=== PATIENT | female | born 1995 ===

== ENCOUNTER 2016-11-06 22:29 | Emergency (ER) | payer MEDICAID ==
[2016-11-06 22:29] VITALS: BMI 22.4
[2016-11-06 22:52] VITALS: RESP 16; O2SAT 99
[2016-11-06] MEDS ORDERED: Oxycodone/Acetaminophen 5/325 mg Tab PO STA (23:06)
--- NOTE | 2016-11-06 23:09 | ED PDOC ---
HPI: General Adult Time Seen by Provider: 11/06/16 23:07 Chief Complaint (Nursing): Back Pain Chief Complaint (Provider): BACK PAIN History Per: Patient (21 Y/O FEMALE H/O ENDOMETRIOSIS HERE WITH FALL ON HARD ICE WHILE SNOWBOARDING TODAY 12 HOURS AGO. PATIENT HAS H/O CHRONIC PAIN FOR ENDOMETRIOSIS AND TOOK TRAMADOL FOR PAIN CONTROL BUT STATES NOT MANAGED WITH IT. NOTES PAIN RADIATING DOWN BOTH LEGS BUT DENIES ANY URINARY OR RECTAL INCONTINENCE.) Past Medical History Reviewed: Historical Data, Nursing Documentation, Vital Signs Vital Signs: Last Vital Signs Temp 97.2 F L 11/06/16 22:49 Pulse 115 H 11/06/16 22:49 Resp 16 11/06/16 22:49 BP 92/63 L 11/06/16 22:49 Pulse Ox 99 11/06/16 23:12 - Medical History PMH: Denies: Chronic Kidney Disease - Surgical History Surgical History: Appendectomy - Family History Family History: States: Unknown Family Hx - Immunization History Hx Tetanus Toxoid Vaccination: No Hx Influenza Vaccination: No Hx Pneumococcal Vaccination: No - Home Medications Home Medications: Ambulatory Orders Medication Instructions Recorded Nitrofurantoin Macrocrystals 100 mg PO BID #14 cap 09/17/16 [Macrobid] Docusate [Colace] 1 tab PO BID #20 cap 11/06/16 Naproxen [Naprosyn Tab] 1 tab PO Q8 PRN #21 tab 11/06/16 oxyCODONE/Acetaminophen [Percocet 1 ea PO Q6 PRN #10 tab 11/06/16 5/325 mg Tab] - Allergies Allergies/Adverse Reactions: Allergies Allergy/AdvReac Type Severity Reaction Status Date / Time melon Allergy ANAPHYLAXIS Verified 08/09/16 19:09 milk Allergy SWELLING Verified 08/09/16 19:09 watermelon Allergy ANAPHYLAXIS Verified 08/09/16 19:04 cantelope Allergy ANAPHYLAXIS Uncoded 09/23/15 04:18 Review of Systems ROS Statement: Except As Marked, All Systems Reviewed And Found Negative Physical Exam - Reviewed Nursing Documentation Reviewed: Yes Vital Signs Reviewed: Yes - Physical Exam Appears: Positive for: Well, Non-toxic, No Acute Distress Head Exam: Positive for: ATRAUMATIC, NORMAL INSPECTION, NORMOCEPHALIC Skin: Positive for: Normal Color, Warm, DRY Eye Exam: Positive for: EOMI, Normal appearance, PERRL ENT: Positive for: Normal ENT Inspection Neck: Positive for: Normal, Painless ROM Cardiovascular/Chest: Positive for: Regular Rate, Rhythm Respiratory: Positive for: CNT, Normal Breath Sounds Gastrointestinal/Abdominal: Positive for: Normal Exam, Bowel Sounds, Soft Back: Positive for: Normal Inspection, Vertebral Tenderness (lower paralumbar tenderness. ) Extremity: Positive for: Normal ROM Neurologic/Psych: Positive for: Alert, Oriented - ECG O2 Sat by Pulse Oximetry: 99 - Progress ED Course And Treament: PERCOCET 5/325 MG X 1 DOSE XRY OF COCCYX/SACRUM: no obvious coccyceal fx noted results d/w patient. Naproxen 500 mg x 1 dose Disposition - Clinical Impression Clinical Impression: Coccygeal injury - Patient ED Disposition Is Patient to be Admitted: No - Disposition Disposition: Routine/Home Disposition Time: 23:48 Condition: FAIR Prescriptions: Docusate [Colace] 1 tab PO BID #20 cap Naproxen [Naprosyn Tab] 1 tab PO Q8 PRN #21 tab PRN Reason: Pain, Moderate (4-7) oxyCODONE/Acetaminophen [Percocet 5/325 mg Tab] 1 ea PO Q6 PRN #10 tab PRN Reason: Pain, Severe (8-10) Instructions: Coccyx Injury (ED) Forms: [facility] ED School/Work Excuse
[2016-11-06] MEDS ORDERED: Naproxen 500 MG TAB PO ONE (23:44)
[2016-11-06] MEDS ORDERED: Naproxen 500 MG TAB PO STA (23:46)
[2016-11-07 00:28] VITALS: BP 100/61; PULSE 67; TEMP 98.3
--- NOTE | 2016-11-07 13:32 | RAD ---
PROCEDURE: Radiographs of the Sacrum and Coccyx HISTORY: R/O COCCYCEAL FX COMPARISON: None available. TECHNIQUE: Frontal and lateral views of the sacrum and coccyx FINDINGS: BONES: Sacrum and coccyx are normal in appearance. No fracture or focal lesion. Bone alignment and mineralization are normal. The sacrococcygeal angulation is normal. SACROILIAC JOINTS: The joint spaces are preserved. No evidence of periarticular sclerosis or erosion. OTHER FINDINGS: None. IMPRESSION: No evidence of acute fracture.
== END 2016-11-07 00:25 | disposition home or self-care (01) ==
LOC: H.ER 22:29
DX: M54.5 Low back pain (principal); W19.XXXA Unspecified fall, initial encounter; Y92.89 Other specified places as the place of occurrence of the external cause

== ENCOUNTER 2016-11-28 16:39 | Observation (INO) | payer MEDICAID ==
[2016-11-28 16:39] VITALS: BMI 22.4
[2016-11-28 17:13] VITALS: BP 96/60; PULSE 80; RESP 18; TEMP 98.2; O2SAT 100
[2016-11-28 18:36] LABS: BASO % 0.3 % (0.0-2.0); EOS # 0.3 K/uL (0.0-0.7); EOS % 2.3 % (0.0-4.0); HEMATOCRIT 31.6 % (34.0-47.0); LYMPH # 2.2 K/uL (1.0-4.3); LYMPH % 19.4 % (20.0-40.0); MEAN CELL VOLUME 85.1 fl (81.0-99.0); MEAN CORPUSCULAR HEMOGLOBIN 28.5 pg (27.0-31.0); MEAN CORPUSCULAR HGB CONC 33.5 g/dL (33.0-37.0); MEAN PLATELET VOLUME 8.6 fl (7.2-11.7); MONO # 0.7 K/uL (0.0-0.8); NEUT # 8.3 K/uL (1.8-7.0); WHITE BLOOD COUNT 11.5 K/uL (4.8-10.8)
[2016-11-28 18:47] LABS: ALB/GLOB RATIO 1.3 (1.0-2.1); ALKALINE PHOSPHATASE 89 U/L (38-126); ALT/SGPT 18 U/L (9-52); AST/SGOT 29 U/L (14-36); BILIRUBIN,TOTAL 0.1 mg/dl (0.2-1.3); BLOOD UREA NITROGEN 13 mg/dl (7-17); CALCIUM 8.7 mg/dL (8.4-10.2); CARBON DIOXIDE 22 mmol/L (22-30); CHLORIDE 107 mmol/L (98-107); GFR AFRICAN-AMERICAN > 60; GLUCOSE,RANDOM 82 mg/dL (65-105); POTASSIUM 3.6 MMOL/L (3.6-5.0); SODIUM 142 mmol/l (132-148); TOTAL PROTEIN 7.3 G/DL (6.3-8.2)
--- NOTE | 2016-11-28 18:51 | ED PDOC ---
HPI: Female Pain Time Seen by Provider: 11/28/16 17:00 Chief Complaint (Nursing): Female Genitourinary Chief Complaint (Provider): Female Genitourinary History Per: Patient History/Exam Limitations: no limitations Onset/Duration Of Symptoms: Days Current Symptoms Are (Timing): Still Present Severity: Moderate Quality Of Discomfort: "Pain" Associated Symptoms: denies: Fever, Nausea, Vomiting, Diarrhea Alleviating Factors: None Additional Complaint(s): Patient is a 21 year old female with a history of endometriosis and recent miscarriage but been on OCPS for last two months, presents to ED for worsening pain for 5 days. Patient states ongoing pain for 2 months but in 5 days pain has worsened with abdominal swelling, unrelieved with Naproxen and Tramadol. Patient also reports vomiting at home, denies fever or diarrhea. [employer] ARCHITECT: Dr. Moralez Past Medical History Reviewed: Historical Data, Nursing Documentation, Vital Signs Vital Signs: Last Vital Signs Temp 98.2 F 11/28/16 17:01 Pulse 80 11/28/16 17:01 Resp 18 11/28/16 17:01 BP 96/60 L 11/28/16 17:01 Pulse Ox 100 11/28/16 17:01 - Medical History PMH: Denies: Chronic Kidney Disease Other PMH: Endometriosis - Surgical History Surgical History: Appendectomy - Family History Family History: States: Unknown Family Hx - Social History Current smoker - smoking cessation education provided: No Alcohol: None Drugs: Denies - Immunization History Hx Tetanus Toxoid Vaccination: No Hx Influenza Vaccination: No Hx Pneumococcal Vaccination: No - Home Medications Home Medications: Ambulatory Orders Medication Instructions Recorded Nitrofurantoin Macrocrystals 100 mg PO BID #14 cap 09/17/16 [Macrobid] Docusate [Colace] 1 tab PO BID #20 cap 11/06/16 Naproxen [Naprosyn Tab] 1 tab PO Q8 PRN #21 tab 11/06/16 oxyCODONE/Acetaminophen [Percocet 1 ea PO Q6 PRN #10 tab 11/06/16 5/325 mg Tab] - Allergies Allergies/Adverse Reactions: Allergies Allergy/AdvReac Type Severity Reaction Status Date / Time melon Allergy ANAPHYLAXIS Verified 08/09/16 19:09 milk Allergy SWELLING Verified 08/09/16 19:09 watermelon Allergy ANAPHYLAXIS Verified 08/09/16 19:04 cantelope Allergy ANAPHYLAXIS Uncoded 09/23/15 04:18 Review of Systems ROS Statement: Except As Marked, All Systems Reviewed And Found Negative Cardiovascular: Negative for: Chest Pain Respiratory: Negative for: Shortness of Breath Gastrointestinal: Positive for: Vomiting, Abdominal Pain. Negative for: Nausea Musculoskeletal: Negative for: Neck Pain, Back Pain Neurological: Negative for: Weakness, Numbness Physical Exam - Reviewed Nursing Documentation Reviewed: Yes Vital Signs Reviewed: Yes - Physical Exam Appears: Positive for: Non-toxic, No Acute Distress Skin: Positive for: Normal Color, Warm. Negative for: Pallor Eye Exam: Positive for: Normal appearance Neck: Positive for: Normal, Painless ROM Cardiovascular/Chest: Positive for: Regular Rate, Rhythm. Negative for: Murmur Respiratory: Positive for: Normal Breath Sounds. Negative for: Respiratory Distress Gastrointestinal/Abdominal: Positive for: Soft, Tenderness (mild suprapubic). Negative for: Distended Back: Positive for: Normal Inspection Extremity: Positive for: Normal ROM Neurologic/Psych: Positive for: Alert, Oriented - Laboratory Results Result Diagrams: 11/28/16 18:31 11/28/16 18:31 - ECG O2 Sat by Pulse Oximetry: 100 (RA) Pulse Ox Interpretation: Normal Medical Decision Making Medical Decision Making: Time: 1809 Initial impression: chronic endometrial pain vs other interuterine pathology Initial plan: -- Beta-HcG -- CBC -- CMP -- Toradol IM -- Urine culture -- ED obs -- U/A -- U/S Time: 2100 U/S report reviewed TRANSVAGINAL Exam Date: 11/28/16 This imaging exam was performed at [facility] EXAM: US Pelvis, Transvaginal CLINICAL HISTORY: 21 years old, female; Pain; Pelvic pain; Additional info: Pelvic pain TECHNIQUE: Real-time transvaginal pelvic ultrasound (complete) with image documentation. Transvaginal imaging was used for better evaluation of the endometrium and adnexa. EXAM DATE/TIME: 11/28/2016 6:11 PM COMPARISON: Prior pelvic CT of 09/23/2015 FINDINGS: Uterus: Within normal limits in appearance. Measures 8.1 x 3.1 x 4.6 cm. Endometrial stripe does not appear abnormally thickened, measuring 5 mm. Cervix appears closed. No fibroids seen. Right ovary: Within normal limits in appearance. Measures 2.1 x 1.1 x 1.9 cm. Flow seen in the right ovary on color and Doppler imaging, with no evidence of torsion. Left ovary: Abnormally enlarged, measuring 4.6 x 3.7 x 4.3 cm, secondary to a cystic lesion measuring 3.8 x 3.3 x 3.6 cm. This lesion appears simple in nature. Flow seen in the left ovarian parenchyma surrounding this lesion on color and Doppler imaging, with no definite evidence of torsion. Cul-de-sac: No free fluid. IMPRESSION: 3.8 cm simple cystic lesion in the left ovary. This cyst is almost certainly benign. No follow-up is necessary, unless otherwise clinically indicated. Patient on re-evaluation is feeling better, ovarian cyst noted on U/S discussed with patient that this can be followed outpatient with [employer] ARCHITECT. UA neg for infection. Patient agrees to follow up as instructed Scribe Attestation: Documented by Grace Manriquez acting as a scribe for Rudy Daniel MD MD Scribe Attestation: All medical record entries made by the Scribe were at my direction and personally dictated by me. I have reviewed the chart and agree that the record accurately reflects my personal performance of the history, physical exam, medical decision making, and the department course for this patient. I have also personally directed, reviewed, and agree with the discharge instructions and disposition. Disposition - Clinical Impression Clinical Impression: Genitourinary Pain, Endometriosis - Patient ED Disposition Is Patient to be Admitted: No Counseled Patient/Family Regarding: Studies Performed, Diagnosis, Need For Followup - Disposition Disposition: Routine/Home Disposition Time: 21:00 Condition: IMPROVED
[2016-11-28 18:57] LABS: RBC URINE 2 /hpf (0-3); URINE BACTERIA RARE (<OCC); URINE BILIRUBIN NEGATIVE (NEGATIVE); URINE BLOOD NEGATIVE (NEGATIVE); URINE COLOR YELLOW (YELLOW); URINE GLUCOSE (UA) NEG (Normal); URINE KETONE NEGATIVE (NEGATIVE); URINE LEUKOCYTE ESTERASE NEG Leu/uL (Negative); URINE PROTEIN 30 mg/dL (NEGATIVE); URINE UROBILINOGEN 0.2-1.0 mg/dL (0.2-1.0); WBC URINE 3 /hpf (0-5)
--- NOTE | 2016-11-28 20:41 | US ---
EXAM: US Pelvis, Transvaginal CLINICAL HISTORY: 21 years old, female; Pain; Pelvic pain; Additional info: Pelvic pain TECHNIQUE: Real-time transvaginal pelvic ultrasound (complete) with image documentation. Transvaginal imaging was used for better evaluation of the endometrium and adnexa. EXAM DATE/TIME: 11/28/2016 6:11 PM COMPARISON: Prior pelvic CT of 09/23/2015 FINDINGS: Uterus: Within normal limits in appearance. Measures 8.1 x 3.1 x 4.6 cm. Endometrial stripe does not appear abnormally thickened, measuring 5 mm. Cervix appears closed. No fibroids seen. Right ovary: Within normal limits in appearance. Measures 2.1 x 1.1 x 1.9 cm. Flow seen in the right ovary on color and Doppler imaging, with no evidence of torsion. Left ovary: Abnormally enlarged, measuring 4.6 x 3.7 x 4.3 cm, secondary to a cystic lesion measuring 3.8 x 3.3 x 3.6 cm. This lesion appears simple in nature. Flow seen in the left ovarian parenchyma surrounding this lesion on color and Doppler imaging, with no definite evidence of torsion. Cul-de-sac: No free fluid. IMPRESSION: 3.8 cm simple cystic lesion in the left ovary. This cyst is almost certainly benign. No follow-up is necessary, unless otherwise clinically indicated. Otherwise negative exam. See above for remaining findings.
== END 2016-11-28 21:01 | disposition home or self-care (01) ==
LOC: H.ER 16:39 → H.EROBSV 18:15
PROVIDERS: ADMIT Emergency Medicine; ATTEND Emergency Medicine
DX: R10.2 Pelvic and perineal pain (principal); N80.9 Endometriosis, unspecified; N83.209 Unspecified ovarian cyst, unspecified side

== ENCOUNTER 2017-01-07 16:52 | Emergency (ER) | payer MEDICAID ==
[2017-01-07 16:52] VITALS: BMI 22.4
[2017-01-07 16:59] VITALS: BP 108/69; PULSE 75; RESP 16; TEMP 98; O2SAT 100
--- NOTE | 2017-01-07 17:42 | ED PDOC ---
HPI: Female Pain Time Seen by Provider: 01/07/17 17:05 Chief Complaint (Nursing): Female Genitourinary Chief Complaint (Provider): Female Genitourinary History Per: Patient History/Exam Limitations: no limitations Onset/Duration Of Symptoms: Days (x13 days but has had on going since 17 y/o) Current Symptoms Are (Timing): Still Present Additional Complaint(s): 21 y/o female with a past medical history of endometriosis (Dx: 17 y/o) presents to the emergency department with a complaint of diffuse pelvic pain described as cramping that radiates to the legs bilaterally, mild nausea, lower back pain, and vaginal bleeding ongoing x13 days. Patient states her periods usually only last about 3 days but decided to visit the ER because symptoms had worsened over the last few days. Reports taking Tramadol without relief of pain. Denies vomiting, diarrhea, abdominal pain, urinary symptoms, chest pain, or shortness of breath. No numbness, tingles. No weakness. No incontinence or constipation. PMD: Dr. Owen Arroyo MD OBGYN: Dr Alfonso REGALADO Past Medical History Reviewed: Historical Data, Nursing Documentation, Vital Signs Vital Signs: Last Vital Signs Temp 98.0 F 01/07/17 16:53 Pulse 75 01/07/17 16:53 Resp 16 01/07/17 16:53 BP 108/69 01/07/17 16:53 Pulse Ox 100 01/07/17 16:53 - Medical History PMH: Denies: Chronic Kidney Disease Other PMH: Endometriosis (Dx at 17 y/o) - Surgical History Surgical History: Appendectomy - Family History Family History: States: Unknown Family Hx - Immunization History Hx Tetanus Toxoid Vaccination: No Hx Influenza Vaccination: No Hx Pneumococcal Vaccination: No - Home Medications Home Medications: Ambulatory Orders Medication Instructions Recorded Nitrofurantoin Macrocrystals 100 mg PO BID #14 cap 09/17/16 [Macrobid] Docusate [Colace] 1 tab PO BID #20 cap 11/06/16 Naproxen [Naprosyn Tab] 1 tab PO Q8 PRN #21 tab 11/06/16 oxyCODONE/Acetaminophen [Percocet 1 ea PO Q6 PRN #10 tab 11/06/16 5/325 mg Tab] - Allergies Allergies/Adverse Reactions: Allergies Allergy/AdvReac Type Severity Reaction Status Date / Time melon Allergy ANAPHYLAXIS Verified 08/09/16 19:09 milk Allergy SWELLING Verified 08/09/16 19:09 watermelon Allergy ANAPHYLAXIS Verified 08/09/16 19:04 cantelope Allergy ANAPHYLAXIS Uncoded 09/23/15 04:18 Review of Systems ROS Statement: Except As Marked, All Systems Reviewed And Found Negative Cardiovascular: Negative for: Chest Pain Respiratory: Negative for: Shortness of Breath Gastrointestinal: Positive for: Nausea (Mild). Negative for: Vomiting, Abdominal Pain, Diarrhea Genitourinary Female: Positive for: Vaginal Bleeding (x13 days), Pelvic Pain ( Severe described as cramping). Negative for: Dysuria, Frequency, Incontinence, Hematuria Musculoskeletal: Positive for: Back Pain (Diffuse lower), Leg Pain (b/l) Physical Exam - Reviewed Nursing Documentation Reviewed: Yes Vital Signs Reviewed: Yes - Physical Exam Appears: Positive for: Non-toxic, In Acute Distress Head Exam: Positive for: ATRAUMATIC, NORMOCEPHALIC Skin: Positive for: Normal Color, Warm, Dry Eye Exam: Positive for: Normal appearance. Negative for: Conjunctival injection Neck: Positive for: Normal, Painless ROM, Supple Cardiovascular/Chest: Positive for: Regular Rate, Rhythm. Negative for: Murmur Respiratory: Positive for: Normal Breath Sounds. Negative for: Accessory Muscle Use, Respiratory Distress Gastrointestinal/Abdominal: Positive for: Normal Exam, Soft. Negative for: Tenderness Pelvic Exam: Positive for: Other (Lower pelvic tenderness mild) Back: Positive for: Other (Mild lower back pain). Negative for: Normal Inspection, L CVA Tenderness, R CVA Tenderness Extremity: Positive for: Normal ROM. Negative for: Pedal Edema Neurologic/Psych: Positive for: Alert, Oriented - Laboratory Results Result Diagrams: 01/07/17 17:32 01/07/17 17:32 Interpretation Of Abn Labs: no acute - ECG O2 Sat by Pulse Oximetry: 100 (RA) Pulse Ox Interpretation: Normal - Progress ED Course And Treament: 1917: Stable. Dr. Mas to fu on US and dispo. Medical Decision Making Medical Decision Making: Time: 17:05 Initial impression: Initial plan: --Basic Metabolic Panel --Urine Dip --ED Urine (POC) --CBC w/ differential --Partial Thromboplastin Time (COAG) --Prothrombin Time (COAG) --Morphine 4 mg IV --Sodium Chloride 1,000 ml IV 1,000 mls/hr --Pelvis/Transvag US --Revaluation Scribe Attestation: Documented by Maria Dolores íRos, acting as a scribe for Francis Dobbins MD. Provider Scribe Attestation: All medical record entries made by the Scribe were at my direction and personally dictated by me. I have reviewed the chart and agree that the record accurately reflects my personal performance of the history, physical exam, medical decision making, and the department course for this patient. I have also personally directed, reviewed, and agree with the discharge instructions and disposition. Disposition - Clinical Impression Clinical Impression: Vaginal bleeding - Patient ED Disposition Is Patient to be Admitted: Transfer of Care - Disposition Disposition: Transfer of Care Disposition Time: 19:18 Condition: STABLE Patient Signed Over To: Tanner Mas
[2017-01-07 17:49] LABS: BASO % 0.5 % (0.0-2.0); EOS # 0.5 K/uL (0.0-0.7); EOS % 6.8 % (0.0-4.0); HEMATOCRIT 31.9 % (34.0-47.0); LYMPH # 2.5 K/uL (1.0-4.3); LYMPH % 34.5 % (20.0-40.0); MEAN CELL VOLUME 81.4 fl (81.0-99.0); MEAN CORPUSCULAR HEMOGLOBIN 26.6 pg (27.0-31.0); MEAN CORPUSCULAR HGB CONC 32.7 g/dL (33.0-37.0); MEAN PLATELET VOLUME 7.9 fl (7.2-11.7); MONO # 0.5 K/uL (0.0-0.8); MONO % 7.1 % (0.0-10.0); NEUT # 3.7 K/uL (1.8-7.0); NEUT % 51.1 % (50.0-75.0); NRBC % 0.1 % (0.0-0.0); RED CELL DISTRIBUTION WIDTH 13.2 % (11.5-14.5); WHITE BLOOD COUNT 7.2 K/uL (4.8-10.8)
[2017-01-07] MEDS: Sodium Chloride 0.9% 1,000 ML IV STA (18:03)
[2017-01-07 18:04] LABS: BLOOD UREA NITROGEN 13 mg/dl (7-17); CALCIUM 8.9 mg/dL (8.4-10.2); CARBON DIOXIDE 24 mmol/L (22-30); CHLORIDE 107 mmol/L (98-107); GFR AFRICAN-AMERICAN > 60; GLUCOSE,RANDOM 79 mg/dL (65-105); POTASSIUM 3.9 MMOL/L (3.6-5.0); SODIUM 139 mmol/l (132-148)
--- NOTE | 2017-01-07 20:28 | ED PDOC ---
- Laboratory Results Result Diagrams: 01/07/17 17:32 01/07/17 17:32 - ECG O2 Sat by Pulse Oximetry: 100 (RA) Pulse Ox Interpretation: Normal Medical Decision Making Medical Decision Making: Time: 19:00 Initial plan: --Patient was transferred from Dr. Dobbins. --Patient is pending Transvag US, reassessment, and disposition. Time: 20:56 --TransVag US FINDINGS: Uterus/cervix: Uterus measures 6.9 x 2.9 x 3.4 cm in size. No myometrial mass. Endometrium: 0.4 cm in thickness. Right ovary: 2.0 x 1.4 x 1.5 cm in size. No mass. Small follicles. Normal flow. Left ovary: 2.0 x 1.0 x 1.9 cm in size. No mass. Small follicles. Normal flow. Free fluid: No significant free fluid. Bladder: Unremarkable as visualized. IMPRESSION: 1. No acute findings. 2. Non-acute findings are described above. EXAM: US Pelvis, Transvaginal CLINICAL HISTORY: 21 years old, female; Pain; Pelvic pain; Additional info: Pelvic pain and vaginal bleeding TECHNIQUE: Real-time transvaginal pelvic ultrasound (complete) with image documentation. Transvaginal imaging was used for better evaluation of the endometrium and adnexa. COMPARISON: CT - ABD PELVIS PO IV CONTRAST 09/23/2015 12:20:24 PM FINDINGS: Uterus/cervix: Uterus measures 6.9 x 2.9 x 3.4 cm in size. No myometrial mass. Endometrium: 0.4 cm in thickness. Right ovary: 2.0 x 1.4 x 1.5 cm in size. No mass. Small follicles. Normal flow. Left ovary: 2.0 x 1.0 x 1.9 cm in size. No mass. Small follicles. Normal flow. Free fluid: No significant free fluid. Bladder: Empty bladder which cannot be evaluated with this probe. IMPRESSION: 1. No acute findings. 2. Non-acute findings are described above. Time: 21:52 --Morphine 4 mg IVP Time: 22:30 --Patient was reevaluated and reported mild improvement in symptoms. --Reviewed [facility] which shows patient does not have a hx of opiate dependency. Possible overdose with narcotic and opiate dependency was discussed with patient. --Reports she has a follow up appointment on 01/09/[address] Hamilton. Upon provider reevaluation patient is feeling better, is medically stable, and requires no further treatment in the ED at this time. Patient will be discharged home with Rx for Colace 100 mg and Percocet 5/325 mg. Counseling was provided and all questions were answered regarding diagnosis and need for follow up with referred clinic. There is agreement to discharge plan. Return if symptoms persist or worsen. Clinical Impression: Vaginal bleeding and endometriosis Scribe Attestation: Documented by Maria Dolores Ríos, acting as a scribe for Tanner Mas MD. Provider Scribe Attestation: All medical record entries made by the Scribe were at my direction and personally dictated by me. I have reviewed the chart and agree that the record accurately reflects my personal performance of the history, physical exam, medical decision making, and the department course for this patient. I have also personally directed, reviewed, and agree with the discharge instructions and disposition. Disposition - Clinical Impression Clinical Impression: Vaginal bleeding, Endometriosis - POA Present On Arrival: None - Disposition [facility] Disposition: Routine/Home Disposition Time: 22:30 Condition: STABLE Prescriptions: Docusate [Colace] 100 mg PO BID PRN #20 cap PRN Reason: Constipation oxyCODONE/Acetaminophen [Percocet 5/325 mg Tab] 1 ea PO Q6 PRN #12 tab PRN Reason: abdominal/pelvic pain Instructions: Endometriosis (ED)
--- NOTE | 2017-01-07 20:57 | US ---
EXAM: US Pelvis Complete, Transabdominal CLINICAL HISTORY: 21 years old, female; Pain; Pelvic pain; Additional info: Pelvic pain and vaginal bleeding TECHNIQUE: Real-time transabdominal pelvic ultrasound (complete) with image documentation. COMPARISON: CT - ABD PELVIS PO IV CONTRAST 09/23/2015 12:20:24 PM FINDINGS: Uterus/cervix: Uterus measures 6.9 x 2.9 x 3.4 cm in size. No myometrial mass. Endometrium: 0.4 cm in thickness. Right ovary: 2.0 x 1.4 x 1.5 cm in size. No mass. Small follicles. Normal flow. Left ovary: 2.0 x 1.0 x 1.9 cm in size. No mass. Small follicles. Normal flow. Free fluid: No significant free fluid. Bladder: Unremarkable as visualized. IMPRESSION: 1.No acute findings. 2.Non-acute findings are described above. EXAM: US Pelvis, Transvaginal CLINICAL HISTORY: 21 years old, female; Pain; Pelvic pain; Additional info: Pelvic pain and vaginal bleeding TECHNIQUE: Real-time transvaginal pelvic ultrasound (complete) with image documentation. Transvaginal imaging was used for better evaluation of the endometrium and adnexa. COMPARISON: CT - ABD PELVIS PO IV CONTRAST 09/23/2015 12:20:24 PM FINDINGS: Uterus/cervix: Uterus measures 6.9 x 2.9 x 3.4 cm in size. No myometrial mass. Endometrium: 0.4 cm in thickness. Right ovary: 2.0 x 1.4 x 1.5 cm in size. No mass. Small follicles. Normal flow. Left ovary: 2.0 x 1.0 x 1.9 cm in size. No mass. Small follicles. Normal flow. Free fluid: No significant free fluid. Bladder: Empty bladder which cannot be evaluated with this probe.
== END 2017-01-07 22:57 | disposition home or self-care (01) ==
LOC: H.ER 16:52
DX: N93.9 Abnormal uterine and vaginal bleeding, unspecified (principal); R10.2 Pelvic and perineal pain

== ENCOUNTER 2017-03-10 08:39 | Emergency (ER) | payer MEDICAID ==
[2017-03-10 08:39] VITALS: BMI 22.4
[2017-03-10 08:46] VITALS: RESP 18
[2017-03-10] MEDS ORDERED: Sodium Chloride 0.9% 1,000 ML IV STA (09:17)
[2017-03-10 09:28] LABS: BASO % 0.3 % (0.0-2.0); EOS % 0.8 % (0.0-4.0); HEMOGLOBIN 11.2 g/dL (12.0-16.0); LYMPH # 0.9 K/uL (1.0-4.3); LYMPH % 16.9 % (20.0-40.0); MEAN CELL VOLUME 81.2 fl (81.0-99.0); MEAN CORPUSCULAR HEMOGLOBIN 26.7 pg (27.0-31.0); MEAN CORPUSCULAR HGB CONC 32.9 g/dL (33.0-37.0); MEAN PLATELET VOLUME 7.8 fl (7.2-11.7); MONO # 0.3 K/uL (0.0-0.8); MONO % 6.7 % (0.0-10.0); NEUT # 3.9 K/uL (1.8-7.0); NEUT % 75.3 % (50.0-75.0); RBC 4.2 Mil/uL (3.80-5.20); RED CELL DISTRIBUTION WIDTH 15.8 % (11.5-14.5); WHITE BLOOD COUNT 5.2 K/uL (4.8-10.8)
[2017-03-10 09:41] LABS: ALB/GLOB RATIO 1.2 (1.0-2.1); ALBUMIN 4.1 g/dL (3.5-5.0); ALT/SGPT 24 U/L (9-52); AST/SGOT 24 U/L (14-36); BLOOD UREA NITROGEN 10 mg/dl (7-17); CALCIUM 8.5 mg/dL (8.4-10.2); GFR AFRICAN-AMERICAN > 60; GFR NON-AFRICAN AMERICAN > 60; LIPASE 45 U/L (23-300)
--- NOTE | 2017-03-10 09:42 | ED PDOC ---
HPI: Abdomen Time Seen by Provider: 03/10/17 09:10 Chief Complaint (Nursing): Abdominal Pain Chief Complaint (Provider): upper abdominal pain, nausea History Per: Patient History/Exam Limitations: no limitations Onset/Duration Of Symptoms: Days (1) Current Symptoms Are (Timing): Still Present Context: Food Severity: Moderate Location Of Pain/Discomfort: RUQ, Epigastric, LUQ Quality Of Discomfort: Sharp, Cramping Associated Symptoms: Nausea, Loss Of Appetite. denies: Vomiting, Diarrhea Exacerbating Factors: None Alleviating Factors: None Last Bowel Movement: Today Additional Complaint(s): 21yo female c/o upper abdominal pain radiating to the back, nausea and loss of appetite since yesterday. Also c/o mild headache, body aches and malaise. Denies bloody stools or fever. States she thinks she was told last year she had gallstones, but never followed up w surgeon. LMP Crystal 2. (spontaneous ). Past Medical History Reviewed: Historical Data, Nursing Documentation, Vital Signs Vital Signs: Last Vital Signs Temp 97 F L 03/10/17 17:41 Pulse 82 03/10/17 17:41 Resp 18 03/10/17 17:41 BP 110/62 03/10/17 17:41 Pulse Ox 99 03/10/17 17:41 - Medical History PMH: Denies: Chronic Kidney Disease Other PMH: endometriosis (this pain feels different today) - Surgical History Surgical History: Appendectomy - Family History Family History: States: Unknown Family Hx - Social History Current smoker - smoking cessation education provided: No - Immunization History Hx Tetanus Toxoid Vaccination: No Hx Influenza Vaccination: No Hx Pneumococcal Vaccination: No - Home Medications Home Medications: Ambulatory Orders Medication Instructions Recorded Nitrofurantoin Macrocrystals 100 mg PO BID #14 cap 09/17/16 [Macrobid] Docusate [Colace] 1 tab PO BID #20 cap 11/06/16 Naproxen [Naprosyn Tab] 1 tab PO Q8 PRN #21 tab 11/06/16 oxyCODONE/Acetaminophen [Percocet 1 ea PO Q6 PRN #10 tab 11/06/16 5/325 mg Tab] Docusate [Colace] 100 mg PO BID PRN #20 cap 01/07/17 oxyCODONE/Acetaminophen [Percocet 1 ea PO Q6 PRN #12 tab 01/07/17 5/325 mg Tab] Ibuprofen [Motrin] 600 mg PO Q6 #20 tab 02/11/17 traMADol [Ultram] 50 mg PO TID #10 tab 02/11/17 Ciprofloxacin [Cipro] 500 mg PO BID #14 tab 03/10/17 Ondansetron [Zofran] 4 mg PO Q6H PRN #10 tab 03/10/17 metroNIDAZOLE [Flagyl] 500 mg PO TID #21 tab 03/10/17 traMADol [Ultram] 50 mg PO TID PRN #12 tab 03/10/17 - Allergies Allergies/Adverse Reactions: Allergies Allergy/AdvReac Type Severity Reaction Status Date / Time melon Allergy ANAPHYLAXIS Verified 02/10/17 20:03 milk Allergy SWELLING Verified 02/10/17 20:03 watermelon Allergy ANAPHYLAXIS Verified 02/10/17 20:03 cantelope Allergy ANAPHYLAXIS Uncoded 02/10/17 20:03 Review of Systems ROS Statement: Except As Marked, All Systems Reviewed And Found Negative Constitutional: Positive for: Malaise. Negative for: Fever, Chills ENT: Negative for: Nose Discharge, Throat Pain, Throat Swelling Cardiovascular: Negative for: Palpitations, Orthopnea Respiratory: Negative for: Cough, Shortness of Breath Gastrointestinal: Positive for: Nausea, Abdominal Pain. Negative for: Vomiting , Diarrhea Genitourinary Female: Negative for: Dysuria, Hematuria, Vaginal Discharge, Vaginal Bleeding Musculoskeletal: Negative for: Neck Pain, Shoulder Pain Skin: Negative for: Rash, Lesions, Jaundice Neurological: Positive for: Headache. Negative for: Weakness, Numbness, Dizziness Psych: Negative for: Anxiety, Depression Physical Exam - Reviewed Nursing Documentation Reviewed: Yes Vital Signs Reviewed: Yes - Physical Exam Appears: Positive for: Well, Non-toxic, No Acute Distress Head Exam: Positive for: ATRAUMATIC, NORMAL INSPECTION, NORMOCEPHALIC Skin: Positive for: Normal Color, Warm, DRY Eye Exam: Positive for: EOMI, Normal appearance, PERRL ENT: Positive for: Normal ENT Inspection Neck: Positive for: Normal, Painless ROM Cardiovascular/Chest: Positive for: Regular Rate, Rhythm Respiratory: Positive for: CNT, Normal Breath Sounds Gastrointestinal/Abdominal: Positive for: Bowel Sounds, Soft, Tenderness (mild R >L). Negative for: Guarding, Rebound Back: Positive for: Normal Inspection Extremity: Positive for: Normal ROM Neurologic/Psych: Positive for: Alert, feather baler II-XII, Oriented. Negative for: Motor/Sensory Deficits - Laboratory Results Result Diagrams: 03/10/17 09:24 03/10/17 09:24 - ECG O2 Sat by Pulse Oximetry: 100 Pulse Ox Interpretation: Normal Medical Decision Making Medical Decision Making: labs reviewed, mild anemia, WBC normal US abd unremarkable CT thus performed given persistent symptoms. Report reviewed revealing colitis. Rx Abx, followup GI. Disposition - Clinical Impression Clinical Impression: Colitis, Abdominal pain - Patient ED Disposition Is Patient to be Admitted: No Counseled Patient/Family Regarding: Studies Performed, Diagnosis, Need For Followup, Rx Given - Disposition Referrals: Moise Levine MD [Staff Provider] - Disposition: Routine/Home Disposition Time: 16:00 Condition: STABLE Additional Instructions: See GI specialist for possible colonoscopy to rule-out serious conditions like inflammatory bowel disease, cancer or other colonic pathologies. Return to ER for any new or worsening symptoms, fever, blood in stool, worsening pain, or any concern. Recommend bland diet for 5 days. Take medications as directed, do not exercise or exert yourself while taking cipro (documented risk of tendon injury for those who exercise while taking this medication) Prescriptions: Ciprofloxacin [Cipro] 500 mg PO BID #14 tab metroNIDAZOLE [Flagyl] 500 mg PO TID #21 tab Ondansetron [Zofran] 4 mg PO Q6H PRN #10 tab PRN Reason: Nausea/Vomiting traMADol [Ultram] 50 mg PO TID PRN #12 tab PRN Reason: Pain, Moderate (4-7) Instructions: Abdominal Pain (ED), Colitis (ED) Forms: [employer] ([place])
[2017-03-10 09:47] LABS: SQUAMOUS EPITHIAL 12 /hpf (0-5); URINE BACTERIA RARE (<OCC); URINE BILIRUBIN NEGATIVE (NEGATIVE); URINE BLOOD SMALL (NEGATIVE); URINE CLARITY CLOUDY (Clear); URINE COLOR YELLOW (YELLOW); URINE GLUCOSE (UA) NEG (Normal); URINE LEUKOCYTE ESTERASE NEG Leu/uL (Negative); URINE NITRATE NEGATIVE (NEGATIVE); URINE PROTEIN 30 mg/dL (NEGATIVE)
--- NOTE | 2017-03-10 11:26 | US ---
HISTORY: RUQ pain COMPARISON: None. TECHNIQUE: Sonographic evaluation of the abdomen. FINDINGS: LIVER: Measures cm. Normal echogenicity of the liver parenchyma. No mass. No intrahepatic bile duct dilatation. GALLBLADDER: Unremarkable. No gallstones. COMMON BILE DUCT: Measures mm. No stones. No dilatation. PANCREAS: Unremarkable as visualized. No mass. No ductal dilatation. RIGHT KIDNEY: Measures cm. Normal echogenicity. No calculus, mass, or hydronephrosis. LEFT KIDNEY: Measures cm. Normal echogenicity. No calculus, mass, or hydronephrosis. SPLEEN: Normal in size and contour. No mass. AORTA: No aneurysmal dilatation. IVC: Unremarkable. OTHER FINDINGS: None. IMPRESSION: Unremarkable abdominal sonogram.
[2017-03-10] MEDS ORDERED: Iohexol 300 100 ML IJ ONE (13:34)
[2017-03-10] MEDS ORDERED: Sodium Chloride 0.9% 50 ML IV ONE (13:34)
--- NOTE | 2017-03-10 15:29 | CT ---
PROCEDURE: CT Abdomen and Pelvis with contrast HISTORY: upper abd pain COMPARISON: None. TECHNIQUE: Contrast dose: 95 mL Omnipaque 300 Radiation dose: Total exam DLP = 42.58 mGy-cm. This CT exam was performed using one or more of the following dose reduction techniques: Automated exposure control, adjustment of the mA and/or kV according to patient size, and/or use of iterative reconstruction technique. FINDINGS: LOWER THORAX: Unremarkable. LIVER: Unremarkable. No gross lesion or ductal dilatation. GALLBLADDER AND BILE DUCTS: Unremarkable. PANCREAS: Unremarkable. No gross lesion or ductal dilatation. SPLEEN: Unremarkable. ADRENALS: Unremarkable. No mass. KIDNEYS AND URETERS: Unremarkable. No hydronephrosis. No solid mass. VASCULATURE: Unremarkable. No aortic aneurysm. BOWEL: There are scattered colonic diverticulae. There is circumferential mural thickening of the ascending and transverse colon. This is suspicious for a colitis, nonspecific. There is streaky inflammatory change adjacent to the ascending colon. There is no bowel obstruction. There are no other abnormal bowel loops identified. APPENDIX: Not identified. Surgical clips are seen in the right lower quadrant raising question of prior appendectomy. PERITONEUM: Trace fluid in the cul-de-sac. LYMPH NODES: Unremarkable. No enlarged lymph nodes. BLADDER: Unremarkable. REPRODUCTIVE: Normal uterus BONES: No acute fracture. OTHER FINDINGS: None. IMPRESSION: Findings concerning for nonspecific colitis involving the ascending and transverse colon. Pericolonic inflammatory change adjacent to the ascending colon. Scattered colonic diverticulae. No other significant abnormality. There is a [address] or [address] the way that [facility]da at [place] 0 my plain films 0 8 will given rotated cystogram from well but not have the opportunity plus diagnostic mammo So blunted and the right colon image 91 2.5 and 1 right wall and omental infarct or outflow or
[2017-03-10] MEDS ORDERED: Oxycodone/Acetaminophen 5/325 mg Tab PO STA (15:46)
[2017-03-10] MEDS ORDERED: Oxycodone/Acetaminophen 5/325 mg Tab ONE (15:58)
[2017-03-10 17:42] VITALS: BP 110/62; PULSE 82; TEMP 97
[2017-03-14 12:33] VITALS: O2SAT 100
== END 2017-03-10 17:42 | disposition home or self-care (01) ==
LOC: H.ER 08:39
DX: K52.9 Noninfective gastroenteritis and colitis, unspecified (principal); R10.9 Unspecified abdominal pain

== ENCOUNTER 2017-03-14 14:24 | Inpatient (IN) | payer MEDICAID ==
[2017-03-14 14:24] VITALS: BMI 22.4
[2017-03-14] MEDS ORDERED: Sodium Chloride 0.9% 1,000 ML IV STA (15:24)
--- NOTE | 2017-03-14 15:33 | ED PDOC ---
HPI: Abdomen Time Seen by Provider: 03/14/17 15:11 Chief Complaint (Nursing): Abdominal Pain History Per: Patient (presented for evaluation of persistent abdominal pain. She was diagnosed with colitis [address] scan in this ER. She was discharged with cipro, flagyl, zofran and tramadol. She returned today because she developed vomiting but still has not had any diarrhea. She points to pain in the RUQ area.) History/Exam Limitations: no limitations Onset/Duration Of Symptoms: Waxing/Waning Past Medical History Reviewed: Historical Data, Nursing Documentation, Vital Signs Vital Signs: Last Vital Signs Temp 98 F 03/14/17 17:36 Pulse 56 L 03/14/17 18:06 Resp 18 03/14/17 18:06 BP 109/65 03/14/17 18:06 Pulse Ox 100 03/14/17 18:06 - Medical History PMH: Denies: Chronic Kidney Disease Other PMH: endometriosis - Surgical History Surgical History: Appendectomy - Family History Family History: States: Unknown Family Hx - Living Arrangements Living Arrangements: With Family - Immunization History Hx Tetanus Toxoid Vaccination: No Hx Influenza Vaccination: No Hx Pneumococcal Vaccination: No - Home Medications Home Medications: Ambulatory Orders Medication Instructions Recorded Nitrofurantoin Macrocrystals 100 mg PO BID #14 cap 09/17/16 [Macrobid] Docusate [Colace] 1 tab PO BID #20 cap 11/06/16 Naproxen [Naprosyn Tab] 1 tab PO Q8 PRN #21 tab 11/06/16 oxyCODONE/Acetaminophen [Percocet 1 ea PO Q6 PRN #10 tab 11/06/16 5/325 mg Tab] Docusate [Colace] 100 mg PO BID PRN #20 cap 01/07/17 oxyCODONE/Acetaminophen [Percocet 1 ea PO Q6 PRN #12 tab 01/07/17 5/325 mg Tab] Ibuprofen [Motrin] 600 mg PO Q6 #20 tab 02/11/17 traMADol [Ultram] 50 mg PO TID #10 tab 02/11/17 Ciprofloxacin [Cipro] 500 mg PO BID #14 tab 03/10/17 Ondansetron [Zofran] 4 mg PO Q6H PRN #10 tab 03/10/17 metroNIDAZOLE [Flagyl] 500 mg PO TID #21 tab 03/10/17 traMADol [Ultram] 50 mg PO TID PRN #12 tab 03/10/17 - Allergies Allergies/Adverse Reactions: Allergies Allergy/AdvReac Type Severity Reaction Status Date / Time melon Allergy ANAPHYLAXIS Verified 02/10/17 20:03 milk Allergy SWELLING Verified 02/10/17 20:03 watermelon Allergy ANAPHYLAXIS Verified 02/10/17 20:03 cantelope Allergy ANAPHYLAXIS Uncoded 02/10/17 20:03 Review of Systems ROS Statement: Except As Marked, All Systems Reviewed And Found Negative Constitutional: Negative for: Fever, Chills Gastrointestinal: Positive for: Nausea, Vomiting, Abdominal Pain Genitourinary Female: Negative for: Dysuria, Frequency Physical Exam - Reviewed Nursing Documentation Reviewed: Yes Vital Signs Reviewed: Yes - Physical Exam Appears: Positive for: Well, Non-toxic, No Acute Distress, Uncomfortable Head Exam: Positive for: ATRAUMATIC, NORMAL INSPECTION, NORMOCEPHALIC Skin: Positive for: Normal Color, Warm, DRY Eye Exam: Positive for: Normal appearance, EOMI ENT: Positive for: Normal ENT Inspection Neck: Positive for: Normal, Painless ROM Cardiovascular/Chest: Positive for: Regular Rate, Rhythm Respiratory: Positive for: CNT, Normal Breath Sounds Gastrointestinal/Abdominal: Positive for: Bowel Sounds (increased), Tenderness ( RUQ and LLQ), Distended Back: Positive for: Normal Inspection Extremity: Positive for: Normal ROM Neurologic/Psych: Positive for: Alert, Oriented - Laboratory Results Result Diagrams: 03/14/17 16:23 03/14/17 15:40 - ECG O2 Sat by Pulse Oximetry: 99 Medical Decision Making Medical Decision Making: reviewed chart from 4 days ago. labs normal. CT reviewed. Imp: abd pain: repeat labs, US and x-rays 6.15p patient not feeling better. still has pain, nausea, and loss of appetite. Case d/w DR. Mccarthy for medical service admission. Disposition - Clinical Impression Clinical Impression: Abdominal pain, Colitis - Patient ED Disposition Is Patient to be Admitted: Yes Doctor Will See Patient In The: Hospital - Disposition Disposition: Transfer of Care Disposition Time: 18:00 Condition: GUARDED Forms: [employer] (Citizen Of [place]) - Pt Status Changed To: Hospital Disposition Of: Observation - POA Present On Arrival: None
[2017-03-14 16:16] LABS: BASO % 0.9 % (0.0-2.0); EOS # 0.1 K/uL (0.0-0.7); EOS % 2.6 % (0.0-4.0); HEMATOCRIT 32.5 % (34.0-47.0); LYMPH % 42.7 % (20.0-40.0); MEAN CELL VOLUME 80.4 fl (81.0-99.0); MEAN CORPUSCULAR HEMOGLOBIN 26.2 pg (27.0-31.0); MEAN CORPUSCULAR HGB CONC 32.6 g/dL (33.0-37.0); MEAN PLATELET VOLUME 8.1 fl (7.2-11.7); MONO # 0.5 K/uL (0.0-0.8); MONO % 10.4 % (0.0-10.0); NEUT % 43.4 % (50.0-75.0); NRBC % 0.1 % (0.0-0.0); RED CELL DISTRIBUTION WIDTH 16.2 % (11.5-14.5); WHITE BLOOD COUNT 4.6 K/uL (4.8-10.8)
--- NOTE | 2017-03-14 17:05 | RAD ---
PROCEDURE: Radiographs of the chest and abdomen (obstructive series) HISTORY: abd pain COMPARISON: No prior. TECHNIQUE: AP radiograph of the chest, with upright and supine radiographs of the abdomen. FINDINGS: CHEST: Lungs: Clear. Cardiovascular: Normal size heart. No pulmonary vascular congestion. Pleura: No pleural fluid. No pneumothorax. Other findings: None. ABDOMEN AND PELVIS: Bowel: Unremarkable bowel gas pattern. No evidence of mechanical obstruction. Free air: None. Bones: Unremarkable. Other findings: None. IMPRESSION: Unremarkable radiographs of chest and abdomen. No evidence of mechanical bowel obstruction.
[2017-03-14 17:26] LABS: CHLORIDE 107 mmol/L (98-107); POTASSIUM 3.6 MMOL/L (3.6-5.0); SODIUM 139 mmol/l (132-148)
[2017-03-14 17:28] LABS: ALB/GLOB RATIO 1.2 (1.0-2.1); ALKALINE PHOSPHATASE 53 U/L (38-126); AST/SGOT 38 U/L (14-36); BILIRUBIN,TOTAL 0.3 mg/dl (0.2-1.3); CARBON DIOXIDE 25 mmol/L (22-30); GFR AFRICAN-AMERICAN > 60; TOTAL PROTEIN 6.8 G/DL (6.3-8.2)
[2017-03-14 17:29] LABS: ALT/SGPT 33 U/L (9-52); BLOOD UREA NITROGEN 12 mg/dl (7-17); CALCIUM 8.8 mg/dL (8.4-10.2); GLUCOSE,RANDOM 76 mg/dL (65-105); LIPASE 71 U/L (23-300)
[2017-03-14] MEDS: Dextrose 5%/0.45% NS 1,000 ML IV SCH (23:14)
[2017-03-15] MEDS: metroNIDAZOLE 500mg/100ml NS 100 ML IVPB SCH ×3 (00:57→17:36)
[2017-03-15] MEDS: Morphine 4 MG/ML VIAL IVP PRN ×3 (03:08→17:46)
[2017-03-15 06:37] LABS: RBC URINE 4 /hpf (0-3); URINE BACTERIA RARE (<OCC); URINE BILIRUBIN NEGATIVE (NEGATIVE); URINE COLOR YELLOW (YELLOW); URINE GLUCOSE (UA) NEG (Normal); URINE KETONE NEGATIVE (NEGATIVE); URINE LEUKOCYTE ESTERASE NEG Leu/uL (Negative); URINE PROTEIN NEGATIVE (NEGATIVE); URINE UROBILINOGEN 0.2-1.0 mg/dL (0.2-1.0); WBC URINE 2 /hpf (0-5)
[2017-03-15 06:39] LABS: URINE BLOOD SMALL (NEGATIVE)
[2017-03-15] MEDS: Ciprofloxacin 400mg/200ml D5W 400 MG/200 ML BAG IVPB SCH ×2 (08:38→21:20)
[2017-03-15 08:50] LABS: BASO % 0.3 % (0.0-2.0); EOS # 0.1 K/uL (0.0-0.7); HEMATOCRIT 30.3 % (34.0-47.0); LYMPH # 2.3 K/uL (1.0-4.3); LYMPH % 56.6 % (20.0-40.0); MEAN CELL VOLUME 79.9 fl (81.0-99.0); MEAN CORPUSCULAR HEMOGLOBIN 26.8 pg (27.0-31.0); MEAN CORPUSCULAR HGB CONC 33.5 g/dL (33.0-37.0); MONO # 0.4 K/uL (0.0-0.8); MONO % 8.9 % (0.0-10.0); NEUT # 1.3 K/uL (1.8-7.0); NEUT % 31.2 % (50.0-75.0); NRBC % 0.1 % (0.0-0.0); RED CELL DISTRIBUTION WIDTH 16.1 % (11.5-14.5)
[2017-03-15 09:01] LABS: ALB/GLOB RATIO 1.2 (1.0-2.1); ALKALINE PHOSPHATASE 48 U/L (38-126); ALT/SGPT 36 U/L (9-52); AST/SGOT 25 U/L (14-36); BILIRUBIN,TOTAL 0.3 mg/dl (0.2-1.3); BLOOD UREA NITROGEN 5 mg/dl (7-17); CALCIUM 8.2 mg/dL (8.4-10.2); CARBON DIOXIDE 24 mmol/L (22-30); CHLORIDE 109 mmol/L (98-107); CHOLESTEROL 120 mg/dL (0-199); GFR AFRICAN-AMERICAN > 60; GLUCOSE,RANDOM 81 mg/dL (65-105); POTASSIUM 3.5 MMOL/L (3.6-5.0); SODIUM 140 mmol/l (132-148); TOTAL PROTEIN 6.3 G/DL (6.3-8.2)
[2017-03-15 09:17] LABS: T4 13.9 ug/dl (5.5-11.0)
[2017-03-15 09:30] LABS: THYROID STIMULATING HORMONE 2.77 mIU/ML (0.46-4.68)
[2017-03-15] MEDS: Vancomycin 500 mg (Oral/Rectal USE) PO SCH ×4 (09:47→22:20)
[2017-03-15] MEDS: Dextrose 5%/0.45% NS 1,000 ML IV SCH (13:46)
--- NOTE | 2017-03-15 15:22 | CP.PCM.HP ---
Past Patient History - Infectious Disease Hx of Infectious Diseases: None - Past Medical History & Family History Past Medical History?: Yes - Past Social History Smoking Status: Former Smoker - CARDIAC Hx Cardiac Disorders: No - PULMONARY Hx Respiratory Disorders: No - NEUROLOGICAL Hx Neurological Disorder: No - HEENT Hx HEENT Problems: No - RENAL Hx Chronic Kidney Disease: No - ENDOCRINE/METABOLIC Hx Endocrine Disorders: No - HEMATOLOGICAL/ONCOLOGICAL Hx Blood Disorders: No - INTEGUMENTARY Hx Dermatological Problems: No - MUSCULOSKELETAL/RHEUMATOLOGICAL Hx Musculoskeletal Disorders: No Hx Falls: No - GASTROINTESTINAL Hx Gastrointestinal Disorders: Yes Hx Colitis: Yes - GENITOURINARY/GYNECOLOGICAL Hx Genitourinary Disorders: Yes (stage 4 endometriosis) - PSYCHIATRIC Hx Psychophysiologic Disorder: No Hx Substance Use: No - SURGICAL HISTORY Hx Surgeries: Yes Hx Appendectomy: Yes - ANESTHESIA Hx Anesthesia: Yes Hx Anesthesia Reactions: No Meds Allergies/Adverse Reactions: Allergies Allergy/AdvReac Type Severity Reaction Status Date / Time melon Allergy ANAPHYLAXIS Verified 02/10/17 20:03 milk Allergy SWELLING Verified 02/10/17 20:03 watermelon Allergy ANAPHYLAXIS Verified 02/10/17 20:03 cantelope Allergy ANAPHYLAXIS Uncoded 02/10/17 20:03 Results - Vital Signs Recent Vital Signs: Last Vital Signs Temp 98.1 F 03/15/17 08:08 Pulse 59 L 03/15/17 08:08 Resp 20 03/15/17 08:08 BP 100/63 03/15/17 08:08 Pulse Ox 100 03/15/17 08:08 - Labs Result Diagrams: 03/15/17 07:30 03/15/17 07:30 Labs: Laboratory Results - last 24 hr 03/15/17 03/15/17 03/15/17 06:00 07:30 07:30 WBC 4.0 L RBC 3.79 L Hgb 10.1 L Hct 30.3 L MCV 79.9 L MCH 26.8 L MCHC 33.5 RDW 16.1 H Plt Count 230 MPV 8.0 Neut % (Auto) 31.2 L Lymph % (Auto) 56.6 H Walker % (Auto) 8.9 Eos % (Auto) 3.0 Baso % (Auto) 0.3 Neut # 1.3 L Lymph # 2.3 Walker # 0.4 Eos # 0.1 Baso # 0.0 PT INR APTT Sodium 140 Potassium 3.5 L Chloride 109 H Carbon Dioxide 24 Anion Gap 11 BUN 5 L Creatinine 0.6 L Est GFR ( Amer) > 60 Est GFR (Non-Af Amer) > 60 Random Glucose 81 Calcium 8.2 L Total Bilirubin 0.3 AST 25 ALT 36 Alkaline Phosphatase 48 Total Protein 6.3 Albumin 3.4 L Globulin 2.9 Albumin/Globulin Ratio 1.2 Triglycerides 87 Cholesterol 120 LDL Cholesterol Direct 51 HDL Cholesterol 45 Thyroxine (T4) 13.9 H TSH 3rd Generation 2.77 Urine Color Yellow Urine Clarity Slighty-cloudy Urine pH 6.0 Ur Specific [place] 1.014 Urine Protein Negative Urine Glucose (UA) Neg Urine Ketones Negative Urine Blood Small Urine Nitrate Negative Urine Bilirubin Negative Urine Urobilinogen 0.2-1.0 Ur Leukocyte Esterase Neg Urine RBC (Auto) 4 H Urine Microscopic WBC 2 Ur Squamous Epith Cells 5 Urine Bacteria Rare 03/15/17 07:30 WBC RBC Hgb Hct MCV MCH MCHC RDW Plt Count MPV Neut % (Auto) Lymph % (Auto) Walker % (Auto) Eos % (Auto) Baso % (Auto) Neut # Lymph # Walker # Eos # Baso # PT 13.2 H INR 1.2 APTT 38.0 H Sodium Potassium Chloride Carbon Dioxide Anion Gap BUN Creatinine Est GFR ( Amer) Est GFR (Non-Af Amer) Random Glucose Calcium Total Bilirubin AST ALT Alkaline Phosphatase Total Protein Albumin Globulin Albumin/Globulin Ratio Triglycerides Cholesterol LDL Cholesterol Direct HDL Cholesterol Thyroxine (T4) TSH 3rd Generation Urine Color Urine Clarity Urine pH Ur Specific [place] Urine Protein Urine Glucose (UA) Urine Ketones Urine Blood Urine Nitrate Urine Bilirubin Urine Urobilinogen Ur Leukocyte Esterase Urine RBC (Auto) Urine Microscopic WBC Ur Squamous Epith Cells Urine Bacteria
[2017-03-16] MEDS: metroNIDAZOLE 500mg/100ml NS 100 ML IVPB SCH ×3 (00:10→16:15)
[2017-03-16] MEDS ORDERED: Atrop/Hyos/Scop/PhenoB Elixir PO PRN (00:18)
--- NOTE | 2017-03-16 00:52 | CP.PCM.CON ---
History of Present Illness - History of Present Illness History of Present Illness: 21 yo female with abdominal pain and diarrhea for 8 days. 4 days ago seen in ER and CT showed colitis. Given po cipro and flagyl and sent home. Returned after developing vomiting and body pain and was admitted. Review of Systems - Constitutional Constitutional: Fever - EENT Eyes: absent: Blurred Vision Ears: absent: Decreased Hearing Nose/Mouth/Throat: absent: Epistaxis - Cardiovascular Cardiovascular: absent: Chest Pain - Respiratory Respiratory: absent: Cough - Gastrointestinal Gastrointestinal: As Per HPI - Genitourinary Genitourinary: absent: Change in Urinary Stream Past Patient History - Infectious Disease Hx of Infectious Diseases: None - Past Medical History & Family History Past Medical History?: Yes - Past Social History Smoking Status: Former Smoker - CARDIAC Hx Cardiac Disorders: No - PULMONARY Hx Respiratory Disorders: No - NEUROLOGICAL Hx Neurological Disorder: No - HEENT Hx HEENT Problems: No - RENAL Hx Chronic Kidney Disease: No - ENDOCRINE/METABOLIC Hx Endocrine Disorders: No - HEMATOLOGICAL/ONCOLOGICAL Hx Blood Disorders: No - INTEGUMENTARY Hx Dermatological Problems: No - MUSCULOSKELETAL/RHEUMATOLOGICAL Hx Musculoskeletal Disorders: No Hx Falls: No - GASTROINTESTINAL Hx Gastrointestinal Disorders: Yes Hx Colitis: Yes - GENITOURINARY/GYNECOLOGICAL Hx Genitourinary Disorders: Yes (stage 4 endometriosis) - PSYCHIATRIC Hx Psychophysiologic Disorder: No Hx Substance Use: No - SURGICAL HISTORY Hx Surgeries: Yes Hx Appendectomy: Yes - ANESTHESIA Hx Anesthesia: Yes Hx Anesthesia Reactions: No Meds Allergies/Adverse Reactions: Allergies Allergy/AdvReac Type Severity Reaction Status Date / Time melon Allergy ANAPHYLAXIS Verified 02/10/17 20:03 milk Allergy SWELLING Verified 02/10/17 20:03 watermelon Allergy ANAPHYLAXIS Verified 02/10/17 20:03 cantelope Allergy ANAPHYLAXIS Uncoded 02/10/17 20:03 - Medications Medications: Current Medications Acetaminophen (Tylenol 325mg Tab) 650 mg PO Q6 PRN PRN Reason: Pain, Mild (1-3) Last Admin: 03/15/17 15:08 Dose: 650 mg Belladonna/Phenobarbital () 5 ml PO QID PRN PRN Reason: abdominal pain Ciprofloxacin (Cipro 400mg/200ml Dsw) 400 mg in 200 mls @ 200 mls/hr IVPB Q12 YAYA Last Admin: 03/15/17 21:20 Dose: 200 mls/hr Metronidazole (Flagyl 500mg/100ml Ns) 100 mls @ 100 mls/hr IVPB Q8 YAYA Last Admin: 03/16/17 00:10 Dose: 100 mls/hr Morphine Sulfate (Morphine) 2 mg IVP Q4 PRN PRN Reason: Pain, severe (8-10) Last Admin: 03/15/17 17:46 Dose: 2 mg Ondansetron HCl (Zofran Inj) 4 mg IVP Q4 PRN PRN Reason: Nausea/Vomiting Last Admin: 03/15/17 22:22 Dose: 4 mg Vancomycin HCl (Vancocin (Oral/Rectal Use)) 250 mg PO QID YAYA Last Admin: 03/15/17 22:20 Dose: 250 mg Physical Exam - Constitutional Appears: No Acute Distress - Head Exam Head Exam: ATRAUMATIC - Eye Exam Eye Exam: Normal appearance Pupil Exam: PERRL - ENT Exam ENT Exam: Mucous Membranes Moist - Neck Exam Neck exam: Positive for: Normal Inspection - Respiratory Exam Respiratory Exam: Clear to Auscultation Bilateral, NORMAL BREATHING PATTERN - Cardiovascular Exam Cardiovascular Exam: REGULAR RHYTHM, +S1, +S2 - GI/Abdominal Exam GI & Abdominal Exam: Normal Bowel Sounds, Soft, Tenderness Additional comments: tender RLQ and upper abdomen. no guarding or rebound Results - Vital Signs Recent Vital Signs: Last Vital Signs Temp 98.5 F 03/16/17 00:21 Pulse 48 L 03/16/17 00:21 Resp 20 03/16/17 00:21 BP 94/54 L 03/16/17 00:21 Pulse Ox 96 03/16/17 00:21 - Labs Result Diagrams: 03/15/17 07:30 03/15/17 07:30 Labs: Laboratory Results - last 24 hr 03/15/17 03/15/17 03/15/17 06:00 07:30 07:30 WBC 4.0 L RBC 3.79 L Hgb 10.1 L Hct 30.3 L MCV 79.9 L MCH 26.8 L MCHC 33.5 RDW 16.1 H Plt Count 230 MPV 8.0 Neut % (Auto) 31.2 L Lymph % (Auto) 56.6 H [place] % (Auto) 8.9 Eos % (Auto) 3.0 Baso % (Auto) 0.3 Neut # 1.3 L Lymph # 2.3 [place] # 0.4 Eos # 0.1 Baso # 0.0 PT INR APTT Sodium 140 Potassium 3.5 L Chloride 109 H Carbon Dioxide 24 Anion Gap 11 BUN 5 L Creatinine 0.6 L Est GFR ( Amer) > 60 Est GFR (Non-Af Amer) > 60 Random Glucose 81 Calcium 8.2 L Total Bilirubin 0.3 AST 25 ALT 36 Alkaline Phosphatase 48 Total Protein 6.3 Albumin 3.4 L Globulin 2.9 Albumin/Globulin Ratio 1.2 Triglycerides 87 Cholesterol 120 LDL Cholesterol Direct 51 HDL Cholesterol 45 Thyroxine (T4) 13.9 H TSH 3rd Generation 2.77 Urine Color Yellow Urine Clarity Slighty-cloudy Urine pH 6.0 Ur Specific [place] 1.014 Urine Protein Negative Urine Glucose (UA) Neg Urine Ketones Negative Urine Blood Small Urine Nitrate Negative Urine Bilirubin Negative Urine Urobilinogen 0.2-1.0 Ur Leukocyte Esterase Neg Urine RBC (Auto) 4 H Urine Microscopic WBC 2 Ur Squamous Epith Cells 5 Urine Bacteria Rare 03/15/17 07:30 WBC RBC Hgb Hct MCV MCH MCHC RDW Plt Count MPV Neut % (Auto) Lymph % (Auto) [place] % (Auto) Eos % (Auto) Baso % (Auto) Neut # Lymph # [place] # Eos # Baso # PT 13.2 H INR 1.2 APTT 38.0 H Sodium Potassium Chloride Carbon Dioxide Anion Gap BUN Creatinine Est GFR ( Amer) Est GFR (Non-Af Amer) Random Glucose Calcium Total Bilirubin AST ALT Alkaline Phosphatase Total Protein Albumin Globulin Albumin/Globulin Ratio Triglycerides Cholesterol LDL Cholesterol Direct HDL Cholesterol Thyroxine (T4) TSH 3rd Generation Urine Color Urine Clarity Urine pH Ur Specific [place] Urine Protein Urine Glucose (UA) Urine Ketones Urine Blood Urine Nitrate Urine Bilirubin Urine Urobilinogen Ur Leukocyte Esterase Urine RBC (Auto) Urine Microscopic WBC Ur Squamous Epith Cells Urine Bacteria Assessment & Plan (1) Colitis Assessment and Plan: Patient admitted with colitis. Etiology unclear r/o infectious viral and bacterial, and IBD. Will try a bland diet in the morning. Colonoscopy Friday if not improved. Continue current antibiotics. for abdominal pain. Status: Acute - Date & Time Date: 03/15/17 Time: 23:40
[2017-03-16] MEDS: Morphine 4 MG/ML VIAL IVP PRN (08:17)
[2017-03-16] MEDS: Ciprofloxacin 400mg/200ml D5W 400 MG/200 ML BAG IVPB SCH ×2 (08:21→21:00)
[2017-03-16] MEDS: Vancomycin 500 mg (Oral/Rectal USE) PO SCH ×4 (08:26→21:21)
--- NOTE | 2017-03-16 09:22 | CP.PCM.HP ---
History of Present Illness - History of Present Illness History of Present Illness: CC: Abdominal pain. 21 y/o F, came to ER [facility], [place], for evaluation and Tx of persistent abdominal pain that began 1-1/2 week [employer], worsening on DOA with no relief. P came c/o of abdominal pain epigastric, RLQ, colic type, intermittent, moderate to severe intensity 5-8:10, associated to nausea and vomiting, non bilious, non bloody, radiated to lower back. Worsening symptom: Myalgia, TMAx 102 at home, loss of appetite. Aggravated factor: Irritability, changing positions. As per Pt; on 03/10/17 was seen in ED [facility] Dx with Colitis that was sowed in the CT, Pt was discharged on Flagyl and Cipro and advised to return if symptoms became worse. Also Pt states that 1 yrs ago had a Colonoscopy and EGD for blood in the stool with non specific result , was Tx with Omeprazole. She also refers to have pain in Lower quadrants with the menstruations alleviated with control pills. PMHx: Endometriosis at 19 y/o, Hx of mild Bronchial Asthma (not on medications ) Hx of Seasonal allergic rhinitis. Pt denied: Chills, diarrhea, urinary symptoms, hematemesis, melena, CO, palpitations, SOB, cough, sick contact, recent travel. Abd Obstructive series shows: Unremarkable. Present on Admission - Present on Admission Any Indicators Present on Admission: No Review of Systems - Constitutional Constitutional: Fever, Weakness, Other (decreased appetite.) - EENT Eyes: Other (negative) Ears: Other (negative) Nose/Mouth/Throat: Other (negative) - Cardiovascular Cardiovascular: Slow Heart Rate - Respiratory Respiratory: Other (negative) - Gastrointestinal Gastrointestinal: Abdominal Pain, Nausea, Vomiting - Genitourinary Genitourinary: Other (negative) - Musculoskeletal Musculoskeletal: Other (body ache.) - Integumentary Integumentary: Other (negative) - Neurological Neurological: Headaches - Psychiatric Psychiatric: Other (negative) - Endocrine Endocrine: Other (negative) - Hematologic/Lymphatic Hematologic: Other (negative) Past Patient History - Infectious Disease Hx of Infectious Diseases: None - Past Medical History & Family History Past Medical History?: Yes Pertinent Family History: Unknown - Past Social History Smoking Status: Former Smoker Alcohol: None Drugs: Denies Home Situation {Lives}: With Family - CARDIAC Hx Cardiac Disorders: No - PULMONARY Hx Respiratory Disorders: Yes Hx Asthma: Yes - NEUROLOGICAL Hx Neurological Disorder: No - HEENT Hx HEENT Problems: No - RENAL Hx Chronic Kidney Disease: No - ENDOCRINE/METABOLIC Hx Endocrine Disorders: No - HEMATOLOGICAL/ONCOLOGICAL Hx Blood Disorders: No - INTEGUMENTARY Hx Dermatological Problems: No - MUSCULOSKELETAL/RHEUMATOLOGICAL Hx Musculoskeletal Disorders: No Hx Falls: No - GASTROINTESTINAL Hx Gastrointestinal Disorders: Yes Hx Colitis: Yes - GENITOURINARY/GYNECOLOGICAL Hx Genitourinary Disorders: Yes (stage 4 endometriosis) - PSYCHIATRIC Hx Psychophysiologic Disorder: No Hx Substance Use: No - SURGICAL HISTORY Hx Surgeries: Yes Hx Appendectomy: Yes - ANESTHESIA Hx Anesthesia: Yes Hx Anesthesia Reactions: No Meds Allergies/Adverse Reactions: Allergies Allergy/AdvReac Type Severity Reaction Status Date / Time melon Allergy ANAPHYLAXIS Verified 02/10/17 20:03 watermelon Allergy ANAPHYLAXIS Verified 02/10/17 20:03 almond milk Allergy SWELLING Uncoded 03/16/17 08:48 cantelope Allergy ANAPHYLAXIS Uncoded 02/10/17 20:03 Physical Exam - Constitutional Appears: No Acute Distress - Head Exam Head Exam: NORMAL INSPECTION - Eye Exam Eye Exam: PERRL - ENT Exam ENT Exam: Normal Oropharynx - Neck Exam Neck exam: Positive for: Normal Inspection - Respiratory Exam Respiratory Exam: NORMAL BREATHING PATTERN - Cardiovascular Exam Cardiovascular Exam: REGULAR RHYTHM - GI/Abdominal Exam GI & Abdominal Exam: Diminished Bowel Sounds, Soft, Tenderness (mild epigastric area, RUQ). absent: Guarding, Rebound - Extremities Exam Extremities exam: Positive for: normal inspection - Back Exam Back exam: NORMAL INSPECTION - Neurological Exam Neurological exam: Alert, Oriented x3 Additional comments: No motor sensory deficit. - Psychiatric Exam Psychiatric exam: Normal Mood - Skin Skin Exam: Normal Color, Warm Results - Vital Signs Recent Vital Signs: Last Vital Signs Temp 98.5 F 03/16/17 00:21 Pulse 48 L 03/16/17 00:21 Resp 20 03/16/17 00:21 BP 94/54 L 03/16/17 00:21 Pulse Ox 96 03/16/17 00:21 reviewed [email or web address] - Labs Result Diagrams: 03/15/17 07:30 03/15/17 07:30 Labs: reviewed J.PJomar - Impressions Impression: Abdomen Obstructive Serie X-Ray: Reviewed [email or web address] Assessment & Plan (1) Abdominal pain Status: Acute Priority: High (2) Colitis Status: Acute Priority: High (3) History of asthma Status: Chronic Priority: Low (4) Low blood pressure Status: Acute Priority: High - Assessment and Plan (Free Text) Plan: Continue Vanco, Flagyl, Cipro, Morphine, , Zofran, U C-S, Stool C-S, Ova and Parasite, continue on contact isolation r/o C-Diff. Pt seen by GI recommended Colonoscopy on Friday if not improved, consult appreciated. ID consult. - Date & Time Date: 03/16/17 Time: 08:40
[2017-03-16] MEDS ORDERED: Magnesium Citrate Oral SOL (300 ml) PO ONE ×2 (11:00→20:00)
--- NOTE | 2017-03-16 12:28 | CP.PCM.CON ---
History of Present Illness - History of Present Illness History of Present Illness: 21 yo female with hx of endometriosis is admitted with newly dx colitis which did not improve with antibiotics/ antispasmodics Denies fever chills or diarrhea No travel no pets Mom had brief diarrheal illness 1 wk ago Thus far no stool obtained for culture + abd pain and distention Last Menses started 5 days ago works in a pharmacy Minimal patient contact had rectal bleed last year - colonoscopy negative History Per: Patient (presented for evaluation of persistent abdominal pain. 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 She was discharged with cipro, flagyl, zofran and tramadol. She returned today because she developed vomiting but still has not had any diarrhea. She points to pain in the RUQ area.) Other PMH: endometriosis - Surgical History Surgical History: Appendectomy Review of Systems - Review of Systems All systems: reviewed and no additional remarkable complaints except - Constitutional Constitutional: As Per HPI - EENT Eyes: absent: As Per HPI, Blind Spots, Blurred Vision, Change in Vision, Decreased Night Vision, Diplopia, Discharge, Dry Eye, Exophthalmos, Floaters, Irritation, Itchy Eyes, Loss of Peripheral Vision, Pain, Photophobia, Requires Corrective Lenses, Sees Flashes, Spots in Vision, Tunnel Vision, Other Visual Disturbances, Loss of Vision, Other Ears: absent: As Per HPI, Decreased Hearing, Ear Discharge, Ear Pain, Tinnitus, Abnormal Hearing, Disequilibrium, Dizziness, Other Nose/Mouth/Throat: absent: As Per HPI, Epistaxis, Nasal Congestion, Nasal Discharge, Nasal Obstruction, Nasal Trauma, Nose Pain, Post Nasal Drip, Sinus Pain, Sinus Pressure, Bleeding Gums, Change in Voice, Dental Pain, Dry Mouth, Dysphagia, Halitosis, Hoarsness, Lip Swelling, Mouth Lesions, Mouth Pain, Odynophagia, Sore Throat, Throat Swelling, Tongue Swelling, Facial Pain, Neck Pain, Neck Mass, Other - Breasts Breasts: absent: As Per HPI, Change in Shape, Mass, Pain, Nipple Discharge, Nipple Inversion, Skin Changes, Swelling, Other - Cardiovascular Cardiovascular: absent: As Per HPI, Acrocyanosis, Chest Pain, Chest Pain at Rest , Chest Pain with Activity, Claudication, Diaphoresis, Dyspnea, Dyspnea on Exertion, Edema, Irregular Heart Rhythm, Pain Radiating to Arm/Neck/Jaw, Leg Edema, Leg Ulcers, Lightheadedness, Orthopnea, Palpitations, Paroxysmal Nocturnal Dyspnea, Pedal Edema, Radiating Pain, Rapid Heart Rate, Slow Heart Rate, Syncope, Other - Respiratory Respiratory: absent: As Per HPI, Cough, Dyspnea, Hemoptysis, Dyspnea on Exertion , Wheezing, Snoring, Stridor, Pain on Inspiration, Chest Congestion, Excessive Mucous Production, Change in Mucous Color, Pain with Coughing, Other - Gastrointestinal Gastrointestinal: As Per HPI - Genitourinary Genitourinary: absent: As Per HPI, Change in Urinary Stream, Difficulty Urinating, Dysuria, Flank Pain, Hematuria, Pyuria, Nocturia, Urinary Incontinence, Urinary Frequency, Urinary Hesitance, Urinary Urgency, Voiding Freq/Small Amts, Freq UTI, Hx Renal/Bladder Calculi, Hx /Renal Surgery, Bladder Distension, Other - Reproductive: Female Reproductive:Female: absent: As Per HPI, Amenorrhea, Amenorrhea/ Control, Currently Menstual, Cycle <21 Days, Cycle >35 Days, Cycle Variable, Menses 1-7 Days, Menses >/= 8 Days, Menses Variable, Cycle > 4 Weeks Between, No Menses for 6 Months, Heavy Menses, Light Menses, Normal Menses, Spotting Between Cycles , S/P Hysterectomy, Menopausal, Post Menopausal, Premenarche, Abnormal Vaginal Bleeding, Dysmenorrhea, Dyspareunia, Genital Lesions, Genital Pruritis, Pelvic Pain, Prolapse Symptoms, Sexual Dysfunction, Vaginal Discharge, Vaginal Dryness , Vaginal Odor, Vaginal Pruritis, Other - Menstruation Menstruation: absent: As Per HPI, Amenorrhea, Amenorrhea/ Control, Currently Menstual, Cycle <21 Days, Cycle >35 Days, Cycle Variable, Menses 1-7 Days, Menses >/= 8 Days, Menses Variable, Cycle > 4 Weeks Between, No Menses for 6 Months, Heavy Menses, Light Menses, Normal Menses, Spotting Between Cycles , S/P Hysterectomy, Menopausal, Post Menopausal, Premenarche, Abnormal Vaginal Bleeding, Dysmenorrhea, Other - Musculoskeletal Musculoskeletal: absent: As Per HPI, Abnormal Gait, Arthralgias, Atrophy, Back Pain, Deformity, Joint Swelling, Limited Range of Motion, Loss of Height, Muscle Cramps, Muscle Weakness, Myalgias, Neck Pain, Numbness, Radiating Pain into Limb, Stiffness, Tingling, Other - Integumentary Integumentary: absent: As Per HPI, Acne, Alopecia, Bleeding Lesions, Change in Hair, Change in Nails, Change in Pigmentation, Changing Lesions, Dry Skin, Erythema, Furuncle, Hirsutism, Lesions, New Lesions, Non-Healing Lesions, Photosensitivity, Pruritus, Rash, Skin Pain, Skin Ulcer, Sores, Striae, Swelling , Unusual Bruising, Wounds, Jaundice, Other - Neurological Neurological: absent: As Per HPI, Abnormal Gait, Abnormal Hearing, Abnormal Movements, Abnormal Speech, Behavioral Changes, Burning Sensations, Confusion, Convulsions, Disequilibrium, Dizziness, Numbness, Focal Weakness, Frequent Falls , Headaches, Lack of Coordination, Loss of Vision, Memory Loss, Paresthesias, Radicular Pain, Restless Legs, Sensory Deficit, Syncope, Tingling, Tremor, Vertigo, Weakness, Other Visual Disturbances, Other - Psychiatric Psychiatric: absent: As Per HPI, Abnormal Sleep Pattern, Anhedonia, Anxiety, Auditory Hallucinations, Behavioral Changes, Change in Appetite, Change in Libido, Confusion, Depression, Difficulty Concentrating, Hallucinations, Homicidal Ideation, Hopelessness, Irritability, Memory Loss, Mood Swings, Panic Attacks, Paranoia, Suicidal Ideation, Visual Hallucinations, Tactile Hallucinations, Other - Endocrine Endocrine: absent: As Per HPI, Change in Body Appearance, Change in Libido, Cold Intolorance, Deepening of Voice, Excessive Sweating, Fatigue, Flushing, Heat Intolorance, Increase in Ring/Shoe/Hat Size, Palpitations, Polydipsia, Polyphagia, Polyuria, Other - Hematologic/Lymphatic Hematologic: absent: As Per HPI, Easy Bleeding, Easy Bruising, Lymphadenopathy, Other Past Patient History - Infectious Disease Hx of Infectious Diseases: None - Past Medical History & Family History Past Medical History?: Yes - Past Social History Smoking Status: Former Smoker - CARDIAC Hx Cardiac Disorders: No - PULMONARY Hx Respiratory Disorders: No - NEUROLOGICAL Hx Neurological Disorder: No - HEENT Hx HEENT Problems: No - RENAL Hx Chronic Kidney Disease: No - ENDOCRINE/METABOLIC Hx Endocrine Disorders: No - HEMATOLOGICAL/ONCOLOGICAL Hx Blood Disorders: No - INTEGUMENTARY Hx Dermatological Problems: No - MUSCULOSKELETAL/RHEUMATOLOGICAL Hx Musculoskeletal Disorders: No Hx Falls: No - GASTROINTESTINAL Hx Gastrointestinal Disorders: Yes Hx Colitis: Yes - GENITOURINARY/GYNECOLOGICAL Hx Genitourinary Disorders: Yes (stage 4 endometriosis) - PSYCHIATRIC Hx Psychophysiologic Disorder: No Hx Substance Use: No - SURGICAL HISTORY Hx Surgeries: Yes Hx Appendectomy: Yes - ANESTHESIA Hx Anesthesia: Yes Hx Anesthesia Reactions: No Meds Allergies/Adverse Reactions: Allergies Allergy/AdvReac Type Severity Reaction Status Date / Time melon Allergy ANAPHYLAXIS Verified 02/10/17 20:03 watermelon Allergy ANAPHYLAXIS Verified 02/10/17 20:03 almond milk Allergy SWELLING Uncoded 03/16/17 08:48 cantelope Allergy ANAPHYLAXIS Uncoded 02/10/17 20:03 - Medications Medications: Current Medications Acetaminophen (Tylenol 325mg Tab) 650 mg PO Q6 PRN PRN Reason: Pain, Mild (1-3) Last Admin: 03/15/17 15:08 Dose: 650 mg Belladonna/Phenobarbital () 5 ml PO QID PRN PRN Reason: abdominal pain Bisacodyl (Dulcolax) 15 mg PO ONCE ONE Stop: 03/16/17 15:01 Ciprofloxacin (Cipro 400mg/200ml Dsw) 400 mg in 200 mls @ 200 mls/hr IVPB Q12 YAYA Last Admin: 03/16/17 08:21 Dose: 200 mls/hr Metronidazole (Flagyl 500mg/100ml Ns) 100 mls @ 100 mls/hr IVPB Q8 YAYA Last Admin: 03/16/17 08:20 Dose: 100 mls/hr Magnesium Citrate (Citrate Of Mag) 300 ml PO ONCE ONE Stop: 03/16/17 20:01 Morphine Sulfate (Morphine) 2 mg IVP Q4 PRN PRN Reason: Pain, severe (8-10) Last Admin: 03/16/17 08:17 Dose: 2 mg Ondansetron HCl (Zofran Inj) 4 mg IVP Q4 PRN PRN Reason: Nausea/Vomiting Last Admin: 03/16/17 10:00 Dose: 4 mg Vancomycin HCl (Vancocin (Oral/Rectal Use)) 250 mg PO QID YAYA Last Admin: 03/16/17 08:26 Dose: 250 mg Physical Exam - Constitutional Appears: Non-toxic, Chronically Ill - Head Exam Head Exam: NORMOCEPHALIC - Eye Exam Eye Exam: PERRL. absent: Scleral icterus - ENT Exam ENT Exam: Mucous Membranes Dry, Normal External Ear Exam - Neck Exam Neck exam: Negative for: Lymphadenopathy, Thyromegaly - Respiratory Exam Respiratory Exam: Decreased Breath Sounds, Clear to Auscultation Bilateral - Cardiovascular Exam Cardiovascular Exam: REGULAR RHYTHM, +S1, +S2 - GI/Abdominal Exam GI & Abdominal Exam: Diminished Bowel Sounds, Distended, Guarding, Soft, Tenderness. absent: Organomegaly, Rebound, Rigid - Rectal Exam Rectal Exam: Deferred - Exam Exam: NORMAL INSPECTION - Extremities Exam Extremities exam: Positive for: pedal pulses present. Negative for: calf tenderness, pedal edema, tenderness - Back Exam Back exam: absent: CVA tenderness (L), CVA tenderness (R), paraspinal tenderness - Neurological Exam Neurological exam: Alert, CN II-XII Intact, Oriented x3, Reflexes Normal - Psychiatric Exam Psychiatric exam: Normal Mood - Skin Skin Exam: Dry Results - Vital Signs Recent Vital Signs: Last Vital Signs Temp 98.2 F 03/16/17 09:22 Pulse 55 L 03/16/17 09:22 Resp 20 03/16/17 09:22 BP 96/61 L 03/16/17 09:22 Pulse Ox 99 03/16/17 09:22 - Labs Result Diagrams: 03/15/17 07:30 03/15/17 07:30 Assessment & Plan (1) Abdominal pain Status: Acute (2) Colitis Status: Acute - Assessment and Plan (Free Text) Assessment: abd pain in a 21 yo female with hx of endometriosis r/o endometriosis as cause vs IBD vs infection ( toxin , viral, bacterial , protozoal ) need to obtain cultures serologies would avoid empiric antibiotics
[2017-03-16] MEDS ORDERED: Bisacodyl 5mg EC Tab PO ONE (15:00)
[2017-03-17] MEDS: metroNIDAZOLE 500mg/100ml NS 100 ML IVPB SCH ×2 (00:12→09:48)
[2017-03-17] MEDS ORDERED: Morphine 4 MG/ML VIAL IVP PRN (02:45)
[2017-03-17] MEDS: Vancomycin 500 mg (Oral/Rectal USE) PO SCH ×2 (08:49→13:15)
[2017-03-17] MEDS: Ciprofloxacin 400mg/200ml D5W 400 MG/200 ML BAG IVPB SCH (09:50)
[2017-03-17] MEDS ORDERED: Lactated Ringer's 500 ML IV ONE (11:43)
[2017-03-17] MEDS ORDERED: Propofol 10 mg/ml Inj (20 ML) ONE (11:56)
[2017-03-17 13:23] VITALS: RESP 18
--- NOTE | 2017-03-17 13:38 | CP.PCM.PN ---
Subjective - Date & Time of Evaluation Date of Evaluation: 03/17/17 Time of Evaluation: 09:00 - Subjective Subjective: colonoscopy negative rx in progress Objective - Vital Signs/Intake and Output Vital Signs (last 24 hours): Temp Pulse Resp BP Pulse Ox 97.7 F 52 L 18 96/61 L 99 03/17/17 13:00 03/17/17 13:00 03/17/17 13:00 03/17/17 13:00 03/17/17 13:00 Intake and Output: 03/17/17 03/17/17 06:59 18:59 Intake Total 150 Balance 150 - Medications Medications: Current Medications Acetaminophen (Tylenol 325mg Tab) 650 mg PO Q6 PRN PRN Reason: Pain, Mild (1-3) Last Admin: 03/15/17 15:08 Dose: 650 mg Belladonna/Phenobarbital () 5 ml PO QID PRN PRN Reason: abdominal pain Last Admin: 03/16/17 19:25 Dose: 5 ml Ciprofloxacin (Cipro 400mg/200ml Dsw) 400 mg in 200 mls @ 200 mls/hr IVPB Q12 YAYA Last Admin: 03/17/17 09:50 Dose: 200 mls/hr Metronidazole (Flagyl 500mg/100ml Ns) 100 mls @ 100 mls/hr IVPB Q8 YAYA Last Admin: 03/17/17 09:48 Dose: 100 mls/hr Morphine Sulfate (Morphine) 2 mg IVP Q4 PRN PRN Reason: Pain, severe (8-10) Ondansetron HCl (Zofran Inj) 4 mg IVP Q4 PRN PRN Reason: Nausea/Vomiting Last Admin: 03/16/17 10:00 Dose: 4 mg Vancomycin HCl (Vancocin (Oral/Rectal Use)) 250 mg PO QID YAYA Last Admin: 03/17/17 13:15 Dose: 250 mg - Labs Labs: PT 13.2 Seconds (9.8-13.1) H 03/15/17 07:30 INR 1.2 (0.9-1.2) 03/15/17 07:30 APTT 38.0 Seconds (25.6-37.1) H 03/15/17 07:30 - Constitutional Appears: Non-toxic, Chronically Ill - Head Exam Head Exam: NORMOCEPHALIC - Eye Exam Eye Exam: Normal appearance - ENT Exam ENT Exam: Mucous Membranes Dry - Neck Exam Neck Exam: absent: Lymphadenopathy - Respiratory Exam Respiratory Exam: Decreased Breath Sounds - Cardiovascular Exam Cardiovascular Exam: REGULAR RHYTHM - GI/Abdominal Exam GI & Abdominal Exam: Soft Assessment and Plan (1) Abdominal pain Status: Acute (2) Colitis Status: Acute
[2017-03-17 13:41] LABS: EPSTEIN-BARR VCA AB IGM <36.00 U/mL
--- NOTE | 2017-03-17 14:54 | CP.PCM.PCO ---
Assessment/Plan - Assessment/Plan Assessment (Free Text): Pt is s/p colonoscopy, stable and tolerating diet. states she has a little abdominal discomfort before eating but feels okay. Per Dr. Levine, colonoscopy negative, pt to be d/c'd home after tolerating diet with no abx. Heart S1S2, lungs clear, abdomen soft non tender, pt aaox3. Pt without complaints at this time. Discussed with Dr. Mccarthy, pt is cleared for d/c home, to f/u with PMD in 1 week. - Problems Patient Problems: Problem List (Active/Current) Problem Status Onset Code Abdominal pain Acute R10.9 Colitis Acute K52.9 Low blood pressure Acute I95.9 History of asthma Chronic Z87.09
[2017-03-17 16:01] VITALS: BP 99/63; PULSE 68; TEMP 99.1; O2SAT 98
--- NOTE | 2017-04-02 10:39 | CP.PCM.DIS ---
Provider - Provider Date of Admission: 03/16/17 04:14 Attending physician: Boni Mccarthy MD Consults: Infectious Disease. Time Spent in preparation of Discharge (in minutes): 25 Diagnosis - Discharge Diagnosis (1) Abdominal pain Status: Acute Priority: High (2) Colitis Status: Acute Priority: High (3) History of asthma Status: Chronic Priority: Low (4) Low blood pressure Status: Acute Priority: High Hospital Course - Lab Results Lab Results: Micro Results 03/16/17 22:25 Stool Stool Culture - Final NO SALMONELLA, SHIGELLA OR CAMPYLOBACTER ISOLATED. 03/16/17 08:31 Stool Ova and Parasite Concentrate Exam - Final Most Recent Lab Values WBC 4.0 K/uL (4.8-10.8) L 03/15/17 07:30 RBC 3.79 Mil/uL (3.80-5.20) L 03/15/17 07:30 Hgb 10.1 g/dL (12.0-16.0) L 03/15/17 07:30 Hct 30.3 % (34.0-47.0) L 03/15/17 07:30 MCV 79.9 fl (81.0-99.0) L 03/15/17 07:30 MCH 26.8 pg (27.0-31.0) L 03/15/17 07:30 MCHC 33.5 g/dL (33.0-37.0) 03/15/17 07:30 RDW 16.1 % (11.5-14.5) H 03/15/17 07:30 Plt Count 230 K/uL (130-400) 03/15/17 07:30 MPV 8.0 fl (7.2-11.7) 03/15/17 07:30 Neut % (Auto) 31.2 % (50.0-75.0) L 03/15/17 07:30 Lymph % (Auto) 56.6 % (20.0-40.0) H 03/15/17 07:30 [place] % (Auto) 8.9 % (0.0-10.0) 03/15/17 07:30 Eos % (Auto) 3.0 % (0.0-4.0) 03/15/17 07:30 Baso % (Auto) 0.3 % (0.0-2.0) 03/15/17 07:30 Neut # 1.3 K/uL (1.8-7.0) L 03/15/17 07:30 Lymph # 2.3 K/uL (1.0-4.3) 03/15/17 07:30 [place] # 0.4 K/uL (0.0-0.8) 03/15/17 07:30 Eos # 0.1 K/uL (0.0-0.7) 03/15/17 07:30 Baso # 0.0 K/uL (0.0-0.2) 03/15/17 07:30 PT 13.2 Seconds (9.8-13.1) H 03/15/17 07:30 INR 1.2 (0.9-1.2) 03/15/17 07:30 APTT 38.0 Seconds (25.6-37.1) H 03/15/17 07:30 Sodium 140 mmol/l (132-148) 03/15/17 07:30 Potassium 3.5 MMOL/L (3.6-5.0) L 03/15/17 07:30 Chloride 109 mmol/L (98-107) H 03/15/17 07:30 Carbon Dioxide 24 mmol/L (22-30) 03/15/17 07:30 Anion Gap 11 (10-20) 03/15/17 07:30 BUN 5 mg/dl (7-17) L 03/15/17 07:30 Creatinine 0.6 mg/dL (0.7-1.2) L 03/15/17 07:30 Est GFR ( Amer) > 60 03/15/17 07:30 Est GFR (Non-Af Amer) > 60 03/15/17 07:30 Random Glucose 81 mg/dL (65-105) 03/15/17 07:30 Calcium 8.2 mg/dL (8.4-10.2) L 03/15/17 07:30 Total Bilirubin 0.3 mg/dl (0.2-1.3) 03/15/17 07:30 AST 25 U/L (14-36) 03/15/17 07:30 ALT 36 U/L (9-52) 03/15/17 07:30 Alkaline Phosphatase 48 U/L (38-126) 03/15/17 07:30 Total Protein 6.3 G/DL (6.3-8.2) 03/15/17 07:30 Albumin 3.4 g/dL (3.5-5.0) L 03/15/17 07:30 Globulin 2.9 gm/dL (2.2-3.9) 03/15/17 07: Albumin/Globulin Ratio 1.2 (1.0-2.1) 03/15/17 07:30 Triglycerides 87 mg/DL (0-149) 03/15/17 07:30 Cholesterol 120 mg/dL (0-199) 03/15/17 07:30 LDL Cholesterol Direct 51 mg/dL (0-129) 03/15/17 07:30 HDL Cholesterol 45 MG/DL (30-70) 03/15/17 07:30 Lipase 71 U/L (23-300) 03/14/17 15:40 Thyroxine (T4) 13.9 ug/dl (5.5-11.0) H 03/15/17 07:30 TSH 3rd Generation 2.77 mIU/ML (0.46-4.68) 03/15/17 07:30 Urine Color Yellow (YELLOW) 03/15/17 06:00 Urine Clarity Slighty-cloudy (Clear) 03/15/17 06:00 Urine pH 6.0 (5.0-8.0) 03/15/17 06:00 Ur Specific [place] 1.014 (1.003-1.030) 03/15/17 06:00 Urine Protein Negative mg/dL (NEGATIVE) 03/15/17 06:00 Urine Glucose (UA) Neg mg/dL (Normal) 03/15/17 06:00 Urine Ketones Negative mg/dL (NEGATIVE) 03/15/17 06:00 Urine Blood Small (NEGATIVE) 03/15/17 06:00 Urine Nitrate Negative (NEGATIVE) 03/15/17 06:00 Urine Bilirubin Negative (NEGATIVE) 03/15/17 06:00 Urine Urobilinogen 0.2-1.0 mg/dL (0.2-1.0) 03/15/17 06:00 Ur Leukocyte Esterase Neg Zahra/uL (Negative) 03/15/17 06:00 Urine RBC (Auto) 4 /hpf (0-3) H 03/15/17 06:00 Urine Microscopic WBC 2 /hpf (0-5) 03/15/17 06:00 Ur Squamous Epith Cells 5 /hpf (0-5) 03/15/17 06:00 Urine Bacteria Rare (<OCC) 03/15/17 06:00 Stool Leukocytes, Qual Negative (NEGATIVE) 03/16/17 22:25 C. difficile Ag & Toxin Negative (NEGATIVE) 03/16/17 22:25 E. histolytica Antigen Not detected 03/16/17 09:49 EBV Capsid Ag IgG Ab 200.00 U/mL H 03/16/17 15:00 EBV Capsid Ag IgM Ab <36.00 U/mL 03/16/17 15:00 EBV Nuclear Antigen Ab 209.00 U/mL H 03/16/17 15:00 EBV Interpretation See note 03/16/17 15:00 Hepatitis A IgM Ab Negative (NEGATIVE) 03/16/17 15:00 Hep Bs Antigen Negative (NEGATIVE) 03/16/17 15:00 Hep B Core IgM Ab Negative (NEGATIVE) 03/16/17 15:00 Hepatitis C Antibody Negative (NEGATIVE) 03/16/17 15:00 HIV 1&2 Antibody Screen Negative (NEGATIVE) 03/16/17 15:00 Infectious [place] Assay Negative (NEGATIVE) 03/16/17 15:00 - Date & Time of H&P Date of H&P: 03/16/17 Time of H&P: 08:40 Discharge Exam - Head Exam Head Exam: NORMAL INSPECTION Discharge Plan - Follow Up Plan Condition: GUARDED Disposition: HOME/ ROUTINE Patient education suggested?: Yes Instructions: Colonoscopy (GEN), Acute Nausea and Vomiting (DC), Infectious Colitis (GEN) Additional Instructions: follow up with primary doctor in 1 week Referrals: Moise Levine MD [Staff Provider] -
== END 2017-03-17 16:34 | disposition home or self-care (01) | DRG 814 ==
LOC: H.ER 14:24 → H.ERHOLD 18:34 → H.MEDSURG1 22:13 → OBSVTOIN 03-16 04:14
PROVIDERS: ADMIT Internal Medicine Pulmonary Disease; ATTEND Internal Medicine Pulmonary Disease
PROC: 0DBE8ZX Excision of Large Intestine, Via Natural or Artificial Opening Endoscopic, Diagnostic (ICD-10-PCS; principal; 2017-03-17 11:45)
DX: K52.9 Noninfective gastroenteritis and colitis, unspecified (principal); K64.8 Other hemorrhoids; Z91.018 Allergy to other foods; Z87.891 Personal history of nicotine dependence; R03.1 Nonspecific low blood-pressure reading; N80.9 Endometriosis, unspecified

== ENCOUNTER 2017-07-20 22:31 | Emergency (ER) | payer MEDICAID ==
[2017-07-20 22:31] VITALS: BMI 22.4
[2017-07-20] MEDS ORDERED: Sodium Chloride 0.9% 1,000 ML IV STA (23:11)
[2017-07-20 23:44] LABS: RBC URINE 5 /hpf (0-3); URINE BACTERIA OCC (<OCC); URINE BILIRUBIN NEGATIVE (NEGATIVE); URINE BLOOD SMALL (NEGATIVE); URINE COLOR YELLOW (YELLOW); URINE GLUCOSE (UA) NEG (Normal); URINE KETONE NEGATIVE (NEGATIVE); URINE LEUKOCYTE ESTERASE NEG Leu/uL (Negative); URINE PROTEIN NEGATIVE (NEGATIVE); URINE UROBILINOGEN 0.2-1.0 mg/dL (0.2-1.0); WBC URINE 1 /hpf (0-5)
[2017-07-21 00:05] LABS: ALB/GLOB RATIO 1.2 (1.0-2.1); ALKALINE PHOSPHATASE 89 U/L (38-126); ALT/SGPT 23 U/L (9-52); AST/SGOT 24 U/L (14-36); BASO % 0.3 % (0.0-2.0); BILIRUBIN,TOTAL 0.3 mg/dl (0.2-1.3); BLOOD UREA NITROGEN 13 mg/dl (7-17); CALCIUM 8.7 mg/dL (8.4-10.2); CARBON DIOXIDE 22 mmol/L (22-30); CHLORIDE 107 mmol/L (98-107); EOS # 0.1 K/uL (0.0-0.7); EOS % 0.6 % (0.0-4.0); GFR AFRICAN-AMERICAN > 60; GLUCOSE,RANDOM 94 mg/dL (65-105); HEMATOCRIT 34.7 % (34.0-47.0); LYMPH # 1.4 K/uL (1.0-4.3); MEAN CELL VOLUME 82.7 fl (81.0-99.0); MEAN CORPUSCULAR HEMOGLOBIN 27.6 pg (27.0-31.0); MEAN CORPUSCULAR HGB CONC 33.4 g/dL (33.0-37.0); MEAN PLATELET VOLUME 8.6 fl (7.2-11.7); MONO # 1.2 K/uL (0.0-0.8); MONO % 9.9 % (0.0-10.0); NEUT # 9.1 K/uL (1.8-7.0); NEUT % 77.2 % (50.0-75.0); NRBC % 0.1 % (0.0-0.0); POTASSIUM 3.6 MMOL/L (3.6-5.0); RED CELL DISTRIBUTION WIDTH 14.6 % (11.5-14.5); SODIUM 139 mmol/l (132-148); TOTAL PROTEIN 7.8 G/DL (6.3-8.2); WHITE BLOOD COUNT 11.8 K/uL (4.8-10.8)
--- NOTE | 2017-07-21 00:07 | ED PDOC ---
HPI: Female Pain Time Seen by Provider: 07/20/17 22:56 Chief Complaint (Nursing): Fever Chief Complaint (Provider): Pelvic Pain History Per: Patient History/Exam Limitations: no limitations Onset/Duration Of Symptoms: Days (x2) Current Symptoms Are (Timing): Still Present Quality Of Discomfort: "Pain" Associated Symptoms: Fever, Other ((+) myalgias). denies: Nausea, Vomiting, Urinary Symptoms Additional Complaint(s): 22 year old female presents to ED with complaints of pelvic pain x2 days and has a past medical history of endometriosis (prescribed oral contraceptives). (+ ) fever and diffuse myalgias. (-) urinary symptoms, nausea, vomiting, cough, or SOB. Patient confirms that pelvic pain is consistent with the pain that stems from endometriosis, but notes that it is much more severe. PCP: Dr. Whaley Past Medical History Reviewed: Historical Data, Nursing Documentation, Vital Signs Vital Signs: Last Vital Signs Temp 99.5 F 07/20/17 22:46 Pulse 95 H 07/20/17 22:46 Resp 16 07/20/17 22:46 BP 101/50 L 07/20/17 22:46 Pulse Ox 97 07/20/17 22:46 - Medical History PMH: Asthma Denies: Chronic Kidney Disease Other PMH: Endometriosis - Surgical History Surgical History: Appendectomy - Family History Family History: States: No Known Family Hx - Living Arrangements Living Arrangements: With Family - Immunization History Hx Tetanus Toxoid Vaccination: No Hx Influenza Vaccination: No Hx Pneumococcal Vaccination: No - Home Medications Home Medications: Ambulatory Orders Medication Instructions Recorded Ondansetron [Zofran Tab] 4 mg PO Q6H PRN #10 tab 03/10/17 traMADol [Ultram] 50 mg PO TID PRN #12 tab 03/10/17 Oseltamivir [Tamiflu] 75 mg PO BID #10 cap 07/21/17 traMADol [Ultram] 50 mg PO Q6 PRN #16 tab 07/21/17 - Allergies Allergies/Adverse Reactions: Allergies Allergy/AdvReac Type Severity Reaction Status Date / Time melon Allergy ANAPHYLAXIS Verified 07/20/17 22:44 watermelon Allergy ANAPHYLAXIS Verified 07/20/17 22:44 almond milk Allergy SWELLING Uncoded 07/20/17 22:44 cantelope Allergy ANAPHYLAXIS Uncoded 12/03/17 22:44 Review of Systems ROS Statement: Except As Marked, All Systems Reviewed And Found Negative Constitutional: Positive for: Fever, Other (Myalgias) Respiratory: Negative for: Cough, Shortness of Breath Gastrointestinal: Negative for: Nausea, Vomiting Genitourinary Female: Positive for: Pelvic Pain. Negative for: Dysuria, Frequency, Incontinence, Hematuria Physical Exam - Reviewed Nursing Documentation Reviewed: Yes Vital Signs Reviewed: Yes - Physical Exam Appears: Positive for: Non-toxic, Uncomfortable Skin: Positive for: Normal Color, Warm, Dry Eye Exam: Positive for: Normal appearance ENT: Negative for: Normal ENT Inspection (tacky mucous membranes) Neck: Negative for: Normal (anterior bilateral cervical adenopathy) Cardiovascular/Chest: Positive for: Regular Rate, Rhythm Respiratory: Positive for: Normal Breath Sounds. Negative for: Respiratory Distress Gastrointestinal/Abdominal: Positive for: Soft, Tenderness (lower abdominal tenderness). Negative for: Guarding, Rebound Back: Positive for: Normal Inspection Extremity: Positive for: Normal ROM. Negative for: Deformity Neurologic/Psych: Positive for: Alert, Oriented - Laboratory Results Result Diagrams: 07/20/17 23:53 07/20/17 23:53 - ECG O2 Sat by Pulse Oximetry: 97 (RA) Pulse Ox Interpretation: Normal Medical Decision Making Medical Decision Makin Initial impression: diffuse myalgias, pelvic pain, and fever in setting of known endometriosis Initial plan: * Labs * CPK * Lact Acid * UPreg * UDip * NS IV * Toradol 30mg IV * BCx * [place] * Influenza A B * Rapid Strep * UA * Re-eval 0246 US FINDINGS: Uterus/cervix: Unremarkable in echogenicity and size measuring 7.3 x 3.7 x 4.7 cm. Normal endometrial stripe thickness measuring 12 mm. No myometrial mass. Right ovary: Unremarkable in echogenicity and size measuring 3.0 x 1.6 x 1.9 cm. No mass. Normal blood flow. Left ovary: Unremarkable in echogenicity and size 3.0 x 1.8 x 1.9 cm. No mass. Normal blood flow. Free fluid: No free fluid. IMPRESSION: Unremarkable sonographic evaluation of the pelvis, as detailed above. Labs reviewed: no clinically significant abnormalities. Upon re-evaluation, patient notes improvement in symptoms. Patient will be treated for flu-like symptoms. Scribe Attestation: Documented by Lawanda Vaughn acting as a scribe for Tanner Mas MD. Scribe Attestation: All medical record entries made by the Scribe were at my direction and personally dictated by me. I have reviewed the chart and agree that the record accurately reflects my personal performance of the history, physical exam, medical decision making, and the department course for this patient. I have also personally directed, reviewed, and agree with the discharge instructions and disposition. Disposition - Clinical Impression Clinical Impression: Influenza-like illness - Disposition Disposition: Routine/Home Disposition Time: 03:00 Condition: STABLE Prescriptions: Oseltamivir [Tamiflu] 75 mg PO BID #10 cap traMADol [Ultram] 50 mg PO Q6 PRN #16 tab PRN Reason: body aches/pelvic pain Instructions: Endometriosis (ED), Influenza (ED), Viral Syndrome (ED) Forms: [facility] (Croatian), [facility] ED School/Work Excuse
[2017-07-21] MEDS ORDERED: Morphine 4 MG/ML VIAL IVP ONE (00:49)
[2017-07-21] MEDS ORDERED: Sodium Chloride 0.9% 1,000 ML IV STA (00:54)
[2017-07-21] MEDS ORDERED: Morphine 4 MG/ML VIAL ONE (00:56)
[2017-07-21 01:07] VITALS: RESP 18; TEMP 98.8
--- NOTE | 2017-07-21 02:47 | US ---
EXAM: US Pelvis, Transvaginal CLINICAL HISTORY: 22 years old, female; Pain; Pelvic pain TECHNIQUE: Real-time transvaginal pelvic ultrasound (complete) with image documentation. Transvaginal imaging was used for better evaluation of the endometrium and adnexa. COMPARISON: US - TRANSVAGINAL 2015-09-23 06:27 FINDINGS: Uterus/cervix: Unremarkable in echogenicity and size measuring 7.3 x 3.7 x 4.7 cm. Normal endometrial stripe thickness measuring 12 mm. No myometrial mass. Right ovary: Unremarkable in echogenicity and size measuring 3.0 x 1.6 x 1.9 cm. No mass. Normal blood flow. Left ovary: Unremarkable in echogenicity and size 3.0 x 1.8 x 1.9 cm. No mass. Normal blood flow. Free fluid: No free fluid. IMPRESSION: Unremarkable sonographic evaluation of the pelvis, as detailed above.
[2017-07-21 05:02] VITALS: BP 90/48; PULSE 71
[2017-07-24 04:05] VITALS: O2SAT 97
== END 2017-07-21 04:30 | disposition home or self-care (01) ==
LOC: H.ER 22:31
DX: J11.1 Influenza due to unidentified influenza virus with other respiratory manifestations (principal); J45.909 Unspecified asthma, uncomplicated
CPT/HCPCS: 76830; 80053; 81003; 81025; 82550; 83605; 85025; 86308; 87040; 87070; 87430; 87804; 96361; 96365; 96375; 99284; J1885; J2270; J7040

== ENCOUNTER 2017-08-28 11:57 | Emergency (ER) | payer MEDICAID ==
[2017-08-28 11:57] VITALS: BMI 22.4
[2017-08-28 12:01] VITALS: BP 115/61; PULSE 78; RESP 20; TEMP 97.1; O2SAT 96
[2017-08-28 13:08] LABS: SQUAMOUS EPITHIAL 2 /hpf (0-5); URINE BACTERIA RARE (<OCC); URINE BILIRUBIN NEGATIVE (NEGATIVE); URINE BLOOD SMALL (NEGATIVE); URINE CLARITY SLIGHTY-CLOUDY (Clear); URINE COLOR YELLOW (YELLOW); URINE GLUCOSE (UA) NEG (Normal); URINE LEUKOCYTE ESTERASE TRACE Leu/uL (Negative); URINE NITRATE NEGATIVE (NEGATIVE); URINE PROTEIN NEGATIVE (NEGATIVE); URINE UROBILINOGEN 0.2-1.0 mg/dL (0.2-1.0)
[2017-08-28] MEDS ORDERED: Morphine 4 MG/ML VIAL ONE (13:08)
[2017-08-28 13:58] LABS: BASO % 0.5 % (0.0-2.0); EOS # 0.1 K/uL (0.0-0.7); EOS % 1.3 % (0.0-4.0); HEMOGLOBIN 12.3 g/dL (12.0-16.0); LYMPH # 1.9 K/uL (1.0-4.3); LYMPH % 41.2 % (20.0-40.0); MEAN CELL VOLUME 83.6 fl (81.0-99.0); MEAN CORPUSCULAR HEMOGLOBIN 27.2 pg (27.0-31.0); MEAN CORPUSCULAR HGB CONC 32.5 g/dL (33.0-37.0); MEAN PLATELET VOLUME 8.3 fl (7.2-11.7); MONO # 0.3 K/uL (0.0-0.8); MONO % 5.6 % (0.0-10.0); NEUT # 2.3 K/uL (1.8-7.0); NEUT % 51.4 % (50.0-75.0); NRBC % 0.1 % (0.0-0.0); RBC 4.52 Mil/uL (3.80-5.20); RED CELL DISTRIBUTION WIDTH 14.8 % (11.5-14.5); WHITE BLOOD COUNT 4.5 K/uL (4.8-10.8)
[2017-08-28 14:24] LABS: ALB/GLOB RATIO 1.1 (1.0-2.1); ALBUMIN 4.3 g/dL (3.5-5.0); ALT/SGPT 16 U/L (9-52); AST/SGOT 55 U/L (14-36); BLOOD UREA NITROGEN 13 mg/dl (7-17); CALCIUM 9.6 mg/dL (8.4-10.2); GFR AFRICAN-AMERICAN > 60; GFR NON-AFRICAN AMERICAN > 60
[2017-08-28] MEDS ORDERED: Iohexol 300 100 ML IJ ONE (16:34)
[2017-08-28] MEDS ORDERED: Sodium Chloride 0.9% 50 ML IV ONE (16:35)
--- NOTE | 2017-08-28 16:45 | ED PDOC ---
HPI: Skin/Bite Injury Time Seen by Provider: 08/28/17 12:45 Chief Complaint (Nursing): Abdominal Pain Chief Complaint (Provider): abdominal pain History Per: Patient History/Exam Limitations: no limitations Additional Complaint(s): 22yo F in ED for eval of lower abd pain worsened in past2-3 days. Pt has long standing hx of chornic pain with hx of endometriosis. no vaginal pain no back pain no vaginal d/c no fever no chills. PT states torodol is no longer effective. Past Medical History Reviewed: Historical Data, Nursing Documentation, Vital Signs Vital Signs: Last Vital Signs Temp 97.1 F L 08/28/17 12:00 Pulse 78 08/28/17 12:00 Resp 20 08/28/17 12:00 BP 115/61 08/28/17 12:00 Pulse Ox 96 08/28/17 17:19 - Medical History PMH: Asthma Denies: Chronic Kidney Disease - Surgical History Surgical History: Appendectomy - Family History Family History: States: Unknown Family Hx - Immunization History Hx Tetanus Toxoid Vaccination: No Hx Influenza Vaccination: No Hx Pneumococcal Vaccination: No - Home Medications Home Medications: Ambulatory Orders Medication Instructions Recorded Ondansetron [Zofran Tab] 4 mg PO Q6H PRN #10 tab 03/10/17 traMADol [Ultram] 50 mg PO TID PRN #12 tab 03/10/17 Oseltamivir [Tamiflu] 75 mg PO BID #10 cap 07/21/17 traMADol [Ultram] 50 mg PO Q6 PRN #16 tab 07/21/17 - Allergies Allergies/Adverse Reactions: Allergies Allergy/AdvReac Type Severity Reaction Status Date / Time melon Allergy ANAPHYLAXIS Verified 07/20/17 22:44 watermelon Allergy ANAPHYLAXIS Verified 07/20/17 22:44 almond milk Allergy SWELLING Uncoded 07/20/17 22:44 cantelope Allergy ANAPHYLAXIS Uncoded 07/20/17 22:44 Review of Systems ROS Statement: Except As Marked, All Systems Reviewed And Found Negative Constitutional: Negative for: Fever, Chills Gastrointestinal: Positive for: Abdominal Pain Genitourinary Female: Positive for: Pelvic Pain. Negative for: Vaginal Discharge, Vaginal Bleeding Physical Exam - Reviewed Nursing Documentation Reviewed: Yes Vital Signs Reviewed: Yes - Physical Exam Appears: Positive for: Non-toxic, No Acute Distress, Uncomfortable Head Exam: Positive for: ATRAUMATIC, NORMAL INSPECTION, NORMOCEPHALIC Skin: Positive for: Normal Color, Warm, DRY Cardiovascular/Chest: Positive for: Regular Rate, Rhythm Respiratory: Positive for: CNT, Normal Breath Sounds Gastrointestinal/Abdominal: Positive for: Bowel Sounds, Soft, Tenderness ( diffuse abdominal pain). Negative for: Distended, Guarding Back: Positive for: Normal Inspection. Negative for: L CVA Tenderness, R CVA Tenderness Neurologic/Psych: Positive for: Alert, Oriented - Laboratory Results Result Diagrams: 08/28/17 13:50 08/28/17 13:50 - ECG O2 Sat by Pulse Oximetry: 96 - CT Scan/US abd Other Rad Studies (CT/US): Radiology Report Reviewed (NAD) - Progress ED Course And Treament: Orders Category Date Time Status ABD & PELVIS IV CONTRAST ONLY [CT] Stat CT 08/28/17 14:28 Completed COMP METABOLIC PANEL Stat Chem 08/28/17 13:50 Completed Dipstick [ED Urine dipstick (POC)] Stat ED Care 08/28/17 12:47 Ordered test (urine, POC) [ED Urine (POC)] ED Care 08/28/17 12:47 Ordered Stat CBC (WITH DIFFERENTIAL) Stat ANGELA 08/28/17 13:50 Completed Iohexol [Omnipaque 300 100 ML] Med 08/28/17 16:34 Discontinued 100 ml IJ .STK-MED ONE Ketorolac [Toradol] Med 08/28/17 14:40 Discontinued 30 mg .ROUTE .STK-MED ONE Ketorolac [Toradol] Med 08/28/17 14:28 Discontinued 30 mg IVP STAT STA Morphine Med 08/28/17 13:08 Discontinued 4 mg .ROUTE .STK-MED ONE Morphine Med 08/28/17 13:01 Discontinued 4 mg IVP ONCE ONE Sodium Chloride 0.9% 50 ml Med 08/28/17 16:35 Discontinued IV .STK-MED UA [URINALYSIS] Stat URINALYSIS 08/28/17 12:51 Completed Medical Decision Making Medical Decision Making: results: no elevated WBC CT scan: results show no pathology 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
--- NOTE | 2017-08-28 17:12 | CT ---
PROCEDURE: CT Abdomen and Pelvis with contrast HISTORY: diffiuse abd pain COMPARISON: None. TECHNIQUE: Contrast dose: 90 mL Omnipaque 300 Radiation dose: Total exam DLP = 387.5 mGy-cm. This CT exam was performed using one or more of the following dose reduction techniques: Automated exposure control, adjustment of the mA and/or kV according to patient size, and/or use of iterative reconstruction technique. FINDINGS: LOWER THORAX: Unremarkable. LIVER: Unremarkable. No gross lesion or ductal dilatation. GALLBLADDER AND BILE DUCTS: Unremarkable. PANCREAS: Unremarkable. No gross lesion or ductal dilatation. SPLEEN: Unremarkable. ADRENALS: Unremarkable. No mass. KIDNEYS AND URETERS: Unremarkable. No hydronephrosis. No solid mass. VASCULATURE: Unremarkable. No aortic aneurysm. BOWEL: Unremarkable. No obstruction. No gross mural thickening. APPENDIX: Prior appendectomy. PERITONEUM: Unremarkable. No free fluid. No free air. LYMPH NODES: Unremarkable. No enlarged lymph nodes. BLADDER: Unremarkable. REPRODUCTIVE: Unremarkable. BONES: No acute fracture. OTHER FINDINGS: None. IMPRESSION: No acute abdominal pelvic pathology.
== END 2017-08-28 18:01 | disposition home or self-care (01) ==
LOC: H.ER 11:57
DX: R10.30 Lower abdominal pain, unspecified (principal); N80.9 Endometriosis, unspecified; J45.909 Unspecified asthma, uncomplicated
CPT/HCPCS: 74177; 80053; 81003; 81025; 85025; 96374; 96375; 99284; J1885; J2270; Q9967

== ENCOUNTER 2017-11-13 11:14 | Emergency (ER) | payer MEDICAID ==
[2017-11-13 11:14] VITALS: BMI 22.4
[2017-11-13] MEDS ORDERED: Sodium Chloride 0.9% 1,000 ML IV STA (11:49)
--- NOTE | 2017-11-13 11:52 | ED PDOC ---
HPI: Abdomen Time Seen by Provider: 11/13/17 11:50 Chief Complaint (Nursing): Abdominal Pain Chief Complaint (Provider): abdominal pain History Per: Patient (22 y/o female h/o Endometriosis diagnosed with ex-lap here for evaluation of abdominal pain ongoing x 4 days gradually worsening. Notes pain mostly upper abdomen involving ruq/epigastrum. Denies any fevers/ chills. Notes nausea and decreased po intake but has tolerated food. Unclear whether abd pain by food.) Past Medical History Reviewed: Historical Data, Nursing Documentation, Vital Signs Vital Signs: Last Vital Signs Temp 97.0 F L 11/13/17 11:33 Pulse 95 H 11/13/17 11:33 Resp 18 11/13/17 11:33 BP 105/66 11/13/17 11:33 Pulse Ox 99 11/13/17 16:20 - Medical History PMH: Asthma Denies: Chronic Kidney Disease - Surgical History Surgical History: Appendectomy - Family History Family History: States: Unknown Family Hx - Immunization History Hx Tetanus Toxoid Vaccination: No Hx Influenza Vaccination: No Hx Pneumococcal Vaccination: No - Home Medications Home Medications: Ambulatory Orders Medication Instructions Recorded Ondansetron [Zofran Tab] 4 mg PO Q6H PRN #10 tab 03/10/17 traMADol [Ultram] 50 mg PO TID PRN #12 tab 03/10/17 Oseltamivir [Tamiflu] 75 mg PO BID #10 cap 07/21/17 traMADol [Ultram] 50 mg PO Q6 PRN #16 tab 07/21/17 Ciprofloxacin HCl [Cipro] 500 mg PO BID #14 tablet 11/13/17 Ranitidine HCl [Zantac 75] 75 mg PO BID #10 tablet 11/13/17 Simethicone [Gas-X] 125 mg PO QID PRN #12 ctb 11/13/17 - Allergies Allergies/Adverse Reactions: Allergies Allergy/AdvReac Type Severity Reaction Status Date / Time melon Allergy ANAPHYLAXIS Verified 07/20/17 22:44 watermelon Allergy ANAPHYLAXIS Verified 07/20/17 22:44 almond milk Allergy SWELLING Uncoded 07/20/17 22:44 cantelope Allergy ANAPHYLAXIS Uncoded 07/20/17 22:44 Review of Systems ROS Statement: Except As Marked, All Systems Reviewed And Found Negative Gastrointestinal: Positive for: Nausea, Abdominal Pain Physical Exam - Reviewed Nursing Documentation Reviewed: Yes Vital Signs Reviewed: Yes - Physical Exam Appears: Positive for: Well, Non-toxic, No Acute Distress Head Exam: Positive for: ATRAUMATIC, NORMAL INSPECTION, NORMOCEPHALIC Skin: Positive for: Normal Color, Warm, DRY Eye Exam: Positive for: EOMI, Normal appearance, PERRL ENT: Positive for: Normal ENT Inspection Neck: Positive for: Normal, Painless ROM Cardiovascular/Chest: Positive for: Regular Rate, Rhythm Respiratory: Positive for: CNT, Normal Breath Sounds Gastrointestinal/Abdominal: Positive for: Normal Exam, Bowel Sounds, Soft, Tenderness (ruq/right flank.) Back: Positive for: Normal Inspection Extremity: Positive for: Normal ROM Neurologic/Psych: Positive for: Alert, Oriented - Laboratory Results Result Diagrams: 11/13/17 12:05 11/13/17 12:05 - ECG O2 Sat by Pulse Oximetry: 99 - Progress ED Course And Treament: PEPCID 20 MG IV X 1 DOSE REGLAN 10 MG IV X1 DOSE NOTED TO HAVE AGITATION AFTER REGLAN BENADRYL 50MG IV X 1 DOSE GIVEN NS 1 LITER 500 ML PER HOUR GC CX SENT US PELVIC: WNL US GALLBLADDER: WNL WILL PRESCRIBE CIPRO 500MG BID #14 FOR COMPLEX UTI, PATIENT HAS HAD RUQ ABD PAIN ASSOCIATED WITH UTI Disposition - Clinical Impression Clinical Impression: Abdominal discomfort, UTI (urinary tract infection) - Patient ED Disposition Is Patient to be Admitted: No - Disposition Referrals: Trey Butterfield MD [Medical Doctor] - Disposition Time: 16:12 Condition: FAIR Prescriptions: Ciprofloxacin HCl [Cipro] 500 mg PO BID #14 tablet Ranitidine HCl [Zantac 75] 75 mg PO BID #10 tablet Simethicone [Gas-X] 125 mg PO QID PRN #12 ctb PRN Reason: Pain, Moderate (4-7) Instructions: Urinary Tract Infections in Adults, Acute Abdomen (Belly Pain), Adult (DC), Ulcer and Gastritis Diet Forms: [employer] (Cam[place]onian), [facility] ED School/Work Excuse
[2017-11-13 12:20] LABS: SQUAMOUS EPITHIAL 6 /hpf (0-5); URINE BACTERIA MANY (<OCC); URINE BILIRUBIN NEGATIVE (NEGATIVE); URINE BLOOD SMALL (NEGATIVE); URINE CLARITY SLIGHTY-CLOUDY (Clear); URINE COLOR YELLOW (YELLOW); URINE GLUCOSE (UA) NEG (Normal); URINE HYALINE CAST 0-2 /hpf (0-2); URINE LEUKOCYTE ESTERASE NEG Leu/uL (Negative); URINE PROTEIN NEGATIVE (NEGATIVE); URINE UROBILINOGEN 0.2-1.0 mg/dL (0.2-1.0)
[2017-11-13] MEDS ORDERED: DiphenhydrAMINE 50 mg/ml Inj IVP STA (12:26)
[2017-11-13 12:29] LABS: ALB/GLOB RATIO 1.2 (1.0-2.1); ALBUMIN 4.2 g/dL (3.5-5.0); ALT/SGPT 23 U/L (9-52); AST/SGOT 23 U/L (14-36); BASO % 0.3 % (0.0-2.0); BLOOD UREA NITROGEN 13 mg/dl (7-17); EOS % 0.8 % (0.0-4.0); GFR AFRICAN-AMERICAN > 60; GFR NON-AFRICAN AMERICAN > 60; HEMOGLOBIN 12.1 g/dL (12.0-16.0); LIPASE 46 U/L (23-300); LYMPH # 1.5 K/uL (1.0-4.3); MEAN CELL VOLUME 83.4 fl (81.0-99.0); MEAN CORPUSCULAR HEMOGLOBIN 28.4 pg (27.0-31.0); MEAN PLATELET VOLUME 8.4 fl (7.2-11.7); MONO # 0.3 K/uL (0.0-0.8); MONO % 4.4 % (0.0-10.0); NEUT # 3.9 K/uL (1.8-7.0); NEUT % 68.5 % (50.0-75.0); NRBC % 0.1 % (0.0-0.0); RBC 4.27 Mil/uL (3.80-5.20); RED CELL DISTRIBUTION WIDTH 13.8 % (11.5-14.5); WHITE BLOOD COUNT 5.7 K/uL (4.8-10.8)
[2017-11-13] MEDS ORDERED: DiphenhydrAMINE 50 mg/ml Inj ONE (12:29)
[2017-11-13 12:53] VITALS: RESP 18; TEMP 97; O2SAT 99
--- NOTE | 2017-11-13 15:24 | US ---
HISTORY: h/o endometriosis. right side abd pain COMPARISON: None available. TECHNIQUE: Transabdominal only. Please note that the examination is limited by the absence of inadequately distended urinary bladder for the transabdominal examination. FINDINGS: UTERUS: Measures 8.2 x 4.1 x 4.7 cm. Normal in size and appearance. No fibroid or other mass lesion seen. ENDOMETRIUM: Measures 5 mm in diameter. Unremarkable. CERVIX: No cervical abnormality identified. RIGHT OVARY: Measures 3.5 x 2.2 x 2.7 cm. No solid mass. Normal flow. LEFT OVARY: Measures 3.9 x 1.5 x 2.0 cm. No solid mass. Normal flow. FREE FLUID: No significant free fluid noted. OTHER FINDINGS: None. IMPRESSION: Normal limited transabdominal pelvic ultrasound examination
--- NOTE | 2017-11-13 15:26 | US ---
HISTORY: ruq abd pain COMPARISON: None. TECHNIQUE: Sonographic evaluation of the right upper quadrant of the abdomen. FINDINGS: LIVER: Measures 15.4 cm in length. Diffusely increased echogenicity of the liver parenchyma. Consistent with fatty infiltration. No mass. No biliary ductal dilatation. Smooth contour. GALLBLADDER: Unremarkable. No gallstones. COMMON BILE DUCT: Measures 4 mm. No stones. No dilatation. PANCREAS: Unremarkable as visualized. No mass. No ductal dilatation. RIGHT KIDNEY: Measures 10.2 cm in length. Normal echogenicity. No calculus, mass, or hydronephrosis. AORTA: No aneurysmal dilatation. IVC: Unremarkable. OTHER FINDINGS: None . IMPRESSION: Mild fatty infiltration of the liver. No evidence of cholelithiasis or cholecystitis.
[2017-11-13 17:06] VITALS: BP 99/61; PULSE 62
== END 2017-11-13 17:07 | disposition home or self-care (01) ==
LOC: H.ER 11:14
DX: N39.0 Urinary tract infection, site not specified (principal); K76.0 Fatty (change of) liver, not elsewhere classified
CPT/HCPCS: 76705; 76856; 80053; 81003; 81025; 83690; 85025; 87086; 87181; 87491; 87591; 96374; 96375; 99283; J1200; J2765; J7040

== ENCOUNTER 2017-11-16 22:21 | Inpatient (IN) | payer MEDICAID ==
[2017-11-16 22:22] VITALS: BMI 22.4
[2017-11-17] MEDS ORDERED: Morphine 4 MG/ML VIAL IVP STA ×2 (00:08→02:35)
[2017-11-17] MEDS ORDERED: Iohexol 240 (50 ml) PO ONE (00:17)
[2017-11-17] MEDS ORDERED: Morphine 4 MG/ML VIAL ONE ×3 (00:18→06:00)
[2017-11-17] MEDS: Sodium Chloride 0.9% 1,000 ML IV SCH ×2 (00:26→06:10)
[2017-11-17 00:33] LABS: SQUAMOUS EPITHIAL < 1 /hpf (0-5); URINE BACTERIA RARE (<OCC); URINE BILIRUBIN NEGATIVE (NEGATIVE); URINE BLOOD NEGATIVE (NEGATIVE); URINE CLARITY CLEAR (Clear); URINE COLOR STRAW (YELLOW); URINE GLUCOSE (UA) NEG (Normal); URINE LEUKOCYTE ESTERASE NEG Leu/uL (Negative); URINE PROTEIN NEGATIVE (NEGATIVE); URINE UROBILINOGEN 0.2-1.0 mg/dL (0.2-1.0)
[2017-11-17] MEDS ORDERED: Iohexol 240 (50 ml) ONE (00:35)
[2017-11-17 00:44] LABS: BASO % 0.5 % (0.0-2.0); EOS # 0.2 K/uL (0.0-0.7); EOS % 2.2 % (0.0-4.0); HEMOGLOBIN 12.3 g/dL (12.0-16.0); LYMPH # 2.8 K/uL (1.0-4.3); LYMPH % 38.5 % (20.0-40.0); MEAN CELL VOLUME 84.9 fl (81.0-99.0); MEAN CORPUSCULAR HEMOGLOBIN 27.9 pg (27.0-31.0); MEAN CORPUSCULAR HGB CONC 32.9 g/dL (33.0-37.0); MEAN PLATELET VOLUME 8.6 fl (7.2-11.7); MONO # 0.5 K/uL (0.0-0.8); MONO % 6.3 % (0.0-10.0); NEUT # 3.9 K/uL (1.8-7.0); NEUT % 52.5 % (50.0-75.0); NRBC % 0.1 % (0.0-0.0); RBC 4.43 Mil/uL (3.80-5.20); RED CELL DISTRIBUTION WIDTH 14.3 % (11.5-14.5); WHITE BLOOD COUNT 7.3 K/uL (4.8-10.8)
[2017-11-17 00:51] LABS: ALB/GLOB RATIO 1.2 (1.0-2.1); ALBUMIN 4.4 g/dL (3.5-5.0); ALT/SGPT 31 U/L (9-52); AST/SGOT 23 U/L (14-36); BLOOD UREA NITROGEN 12 mg/dl (7-17); CALCIUM 9.4 mg/dL (8.4-10.2); GFR AFRICAN-AMERICAN > 60; GFR NON-AFRICAN AMERICAN > 60; LIPASE 62 U/L (23-300)
[2017-11-17] MEDS ORDERED: Sodium Chloride 0.9% 100 ML ONE (02:03)
[2017-11-17] MEDS ORDERED: Iohexol 300 100 ML IJ ONE (02:03)
--- NOTE | 2017-11-17 02:38 | ED PDOC ---
HPI: Abdomen Time Seen by Provider: 11/16/17 23:13 Chief Complaint (Nursing): Back Pain Chief Complaint (Provider): Abdominal Pain History Per: Patient History/Exam Limitations: no limitations Onset/Duration Of Symptoms: Days (X7) Location Of Pain/Discomfort: RUQ, Epigastric Associated Symptoms: Nausea, Vomiting. denies: Fever, Diarrhea Additional Complaint(s): Patient complains of abdominal pain associated with (+) nausea and vomiting x1 week. Notes pain originated in the RUQ/right flank, but now notes pain to the epigastrum radiation to the bilateral flanks and mid-back. Patient was seen in the ED 4 days ago, with US and blood work showing kidney infection. Prescription of Cipro was given, and patient notes she is also using her old prescription of Toradol prescribed for endometriosis to treat her pain. Otherwise: (-) diarrhea, (-) fever, (-) melena, (-) hematochezia, (-) urinary symptoms, (-) vaginal bleed/discharge. Has no history of prior abdominal surgery. PCP: Owen Arroyo FURNITURE REPRODUCER: Pham Santizo Abnormal Vaginal Bleeding: No Past Medical History Reviewed: Historical Data, Nursing Documentation, Vital Signs Vital Signs: Last Vital Signs Temp 97.6 F 11/16/17 23:09 Pulse 66 11/16/17 23:09 Resp 18 11/16/17 23:09 BP 137/89 11/16/17 23:09 Pulse Ox 100 11/17/17 03:53 - Medical History PMH: Asthma Denies: Chronic Kidney Disease Other PMH: Endometriosis - Surgical History Surgical History: Appendectomy - Family History Family History: States: Unknown Family Hx - Living Arrangements Living Arrangements: With Family - Immunization History Hx Tetanus Toxoid Vaccination: No Hx Influenza Vaccination: No Hx Pneumococcal Vaccination: No - Home Medications Home Medications: Ambulatory Orders Medication Instructions Recorded Ondansetron [Zofran Tab] 4 mg PO Q6H PRN #10 tab 03/10/17 Ciprofloxacin HCl [Cipro] 500 mg PO BID #14 tablet 11/13/17 Ranitidine HCl [Zantac 75] 75 mg PO BID #10 tablet 11/13/17 Simethicone [Gas-X] 125 mg PO QID PRN #12 ctb 11/13/17 - Allergies Allergies/Adverse Reactions: Allergies Allergy/AdvReac Type Severity Reaction Status Date / Time melon Allergy ANAPHYLAXIS Verified 07/20/17 22:44 watermelon Allergy ANAPHYLAXIS Verified 07/20/17 22:44 almond milk Allergy SWELLING Uncoded 07/20/17 22:44 cantelope Allergy ANAPHYLAXIS Uncoded 07/20/17 22:44 Review of Systems ROS Statement: Except As Marked, All Systems Reviewed And Found Negative Constitutional: Negative for: Fever Gastrointestinal: Positive for: Nausea, Vomiting, Abdominal Pain. Negative for : Diarrhea Genitourinary Female: Negative for: Dysuria, Frequency, Incontinence, Hematuria , Vaginal Discharge, Vaginal Bleeding Physical Exam - Reviewed Nursing Documentation Reviewed: Yes Vital Signs Reviewed: Yes - Physical Exam Comments: GENERAL APPEARANCE: Patient is awake, alert, oriented x 3, in moderate painful distress SKIN: Warm, dry; (-) cyanosis. EYES: (-) conjunctival pallor, (-) scleral icterus. ENMT: Mucous membranes moist. NECK: (-) tenderness, (-) stiffness, (-) lymphadenopathy. CHEST AND RESPIRATORY: (-) rales, (-) rhonchi, (-) wheezes; breath sounds equal bilaterally. HEART AND CARDIOVASCULAR: (-) irregularity; (-) murmur, (-) gallop. ABDOMEN AND GI: (-) distention. Bowel sounds active; diffuse abdominal tenderness to light touch, (-) guarding, (-) rebound, (-) palpable masses, (+) bilateral CVA tenderness. EXTREMITIES: (-) deformity, (-) edema, (+) distal pulses. NEURO AND PSYCH: Mental status as above; (-) focal findings. - Laboratory Results Result Diagrams: 11/17/17 00:30 11/17/17 00:30 - ECG O2 Sat by Pulse Oximetry: 100 (RA) Pulse Ox Interpretation: Normal Medical Decision Making Medical Decision Making: Previous medical records reviewed, patient seen and evaluated in this ER on 11/13, labs were wnl, except there was +UTI, Abd and pelvic US was done and showed no acute findings, no gallstones, no free fluid, no ovarian cyst. [id number] Initial plan: * CTA A/P * Labs * Lipase * UPreg * Morphine 4mg IVP * NS IV * Iohexol 50mL PO * Zofran 4mg PO * UCx * UA * Re-eval Uhcg (-). Labs reviewed and are wnl. UA (-). Patient returned from CT. On re-evaluation, patient reports abdominal pain is recurring. On exam, patient remains AAOx3, in mild painful distress. Abdomen soft, with diffuse abdominal tenderness. Patient medicated with morphine 4 mg IV and pepcid [address] FINDINGS: Lung bases: Unremarkable. No mass. No consolidation. ABDOMEN: Liver: Unremarkable. No mass. Gallbladder and bile ducts: Unremarkable. No ductal dilation. Pancreas: Unremarkable. No mass. No ductal dilation. Spleen: Unremarkable. No splenomegaly. Adrenals: Unremarkable. No mass. Kidneys and ureters: Unremarkable. No solid mass. No hydronephrosis. Stomach and bowel: Large amount of stool in the colon. Correlation with patient' s clinical history of constipation is recommended. Diverticulosis.There are nonspecific fluid filled small bowel loops. These findings can represent ileus versus enteritis versus slow transit versus peristalsis. Appendix: Appendectomy. PELVIS: Bladder: Bladder distention. Correlation with patient's voiding status is recommended. Reproductive: There is heterogeneous appearance to the cervix. Correlation with clinical pelvic exam and/or Pap smear may be helpful if cervical fibroid or other mass etiology is clinically suspected. Endometrial stripe distention. Correlation with patient's menstrual cycle status is recommended. Right ovarian hypodense dominant follicle measuring 2.1 cm and the left ovarian dominant follicle measuring 1.8 cm. ABDOMEN and PELVIS: Intraperitoneal space: Small to moderate amount of free pelvic fluid. No free air. Bones/joints: No acute fracture. No dislocation. Soft tissues: Unremarkable. Vasculature: Unremarkable. No abdominal aortic aneurysm. Lymph nodes: Unremarkable. No enlarged lymph nodes. IMPRESSION: 1. Small to moderate amount of free pelvic fluid. 2. Bilateral ovarian dominant follicle.If clinically warranted, a pelvic ultrasound may be helpful for further assessment. 3. There is heterogeneous appearance to the cervix. Correlation with clinical pelvic exam and/or Pap smear may be helpful if cervical fibroid or other mass etiology is clinically suspected. On re-evaluation, patient reports pain is controlled at this time. On exam, patient remains AAOx3, in no acute distress. Diagnostic results d/w the patient in great detail. Case d/w ER MD, decision made to obtain repeat pelvic US to r/o ovarian torsion. Case d/w surgical garment inspector Dr. Roberson, who will evaluate the patient. Case d/w Dr. Vergara, hospitalist, agrees with inpatient observation. Based on history, exam and diagnostic results, plan will be for inpatient observation. Patient states she fully agrees with further plan for inpatient observation. I have given the patient opportunity to ask any additional questions. Scribe Attestation: Documented by Lawanda Vaughn acting as a scribe for Shelly Gusman PA-C. Scribe Attestation: All medical record entries made by the Scribe were at my direction and personally dictated by me. I have reviewed the chart and agree that the record accurately reflects my personal performance of the history, physical exam, medical decision making, and the department course for this patient. I have also personally directed, reviewed, and agree with the discharge instructions and disposition. Disposition - Clinical Impression Clinical Impression: Intractable abdominal pain, Free fluid in pelvis - Patient ED Disposition Is Patient to be Admitted: Yes Counseled Patient/Family Regarding: Studies Performed, Diagnosis - Disposition Referrals: Owen Arroyo MD [Primary Care Provider] - Disposition Time: 03:45 Condition: STABLE Forms: [employer] (Lux[place]ish)
--- NOTE | 2017-11-17 05:08 | CP.PCM.HP ---
History of Present Illness - History of Present Illness History of Present Illness: PMD: Crystal Pérez MD OB/Byn: Dr gabriella Kendrick Chief Complaint: Abdominal and Back pain The patient was seen and examined in the ED HPI: 22 years old female with hx of Stage 4 Endometriosis, Colitis, Appendectomy and was at the Ed 4 days ago, diagnosed with UTI, discharged on Cipro. She returns with worsening of the same complaint which is Severe pain across the lower back, radiating to the left and right lateral and anterior abdomen and to the pelvic region. The pain is sharp, continuous, with no significant relief with her regular analgesics. The pain is associated with Nausea, vomiting once, chills, diaphoresis, headache, dizziness with increase of pain at the pelvic region on urination. PMH: Stage 4 Endometriosis; Mild Bronchial Asthma; Colitis; PSH; Appendectomy; Laparoscopies X2 SH: No illegal drug use; Never Smoked; No Alcohol; Live with family; Works as a [employer] Hand. FH: States: Unknown Family Hx Allergies: NKDA Melon, [place] milk, [place] Medication: Reviewed Present on Admission - Present on Admission Any Indicators Present on Admission: No History of DVT/PE: No History of Uncontrolled Diabetes: No Urinary Catheter: No Decubitus Ulcer Present: No Review of Systems - Constitutional Constitutional: Chills, Fatigue, Headache. absent: Anorexia - EENT Eyes: absent: Diplopia, Floaters, Requires Corrective Lenses, Sees Flashes Ears: absent: Decreased Hearing, Ear Discharge, Ear Pain, Tinnitus Nose/Mouth/Throat: absent: Nasal Discharge, Sinus Pain, Sinus Pressure - Cardiovascular Cardiovascular: absent: Chest Pain, Dyspnea, Edema - Respiratory Respiratory: absent: Cough, Dyspnea, Wheezing, Stridor - Gastrointestinal Gastrointestinal: Abdominal Pain, Nausea, Vomiting. absent: Constipation, Diarrhea - Genitourinary Genitourinary: Dysuria, Flank Pain. absent: Hematuria, Urinary Frequency - Musculoskeletal Musculoskeletal: Back Pain. absent: Arthralgias, Joint Swelling, Muscle Weakness - Integumentary Integumentary: absent: Pruritus, Rash, Skin Ulcer, Sores, Striae, Swelling - Neurological Neurological: Dizziness, Headaches. absent: Confusion, Focal Weakness, Weakness - Psychiatric Psychiatric: absent: Anxiety, Depression, Panic Attacks - Endocrine Endocrine: absent: Palpitations, Polydipsia, Polyphagia, Polyuria - Hematologic/Lymphatic Hematologic: absent: Easy Bleeding, Easy Bruising Past Patient History - Infectious Disease Hx of Infectious Diseases: None - Past Medical History & Family History Past Medical History?: Yes - Past Social History Smoking Status: Never Smoked Chewing Tobacco Use: No Cigar Use: No Alcohol: None Drugs: Denies Home Situation {Lives}: With Family - CARDIAC Hx Cardiac Disorders: No - PULMONARY Hx Asthma: Yes - NEUROLOGICAL Hx Neurological Disorder: No - HEENT Hx HEENT Problems: No - RENAL Hx Chronic Kidney Disease: No - ENDOCRINE/METABOLIC Hx Endocrine Disorders: No - HEMATOLOGICAL/ONCOLOGICAL Hx Blood Disorders: No - INTEGUMENTARY Hx Dermatological Problems: No - MUSCULOSKELETAL/RHEUMATOLOGICAL Hx Musculoskeletal Disorders: No Hx Falls: No - GASTROINTESTINAL Hx Gastrointestinal Disorders: Yes Hx Colitis: Yes - GENITOURINARY/GYNECOLOGICAL Hx Genitourinary Disorders: Yes (stage 4 endometriosis) - PSYCHIATRIC Hx Psychophysiologic Disorder: No Hx Substance Use: No - SURGICAL HISTORY Hx Appendectomy: Yes Other/Comment: laparoscopies X2 - ANESTHESIA Hx Anesthesia: Yes Hx Anesthesia Reactions: No Hx Malignant Hyperthermia: No Meds Allergies/Adverse Reactions: Allergies Allergy/AdvReac Type Severity Reaction Status Date / Time melon Allergy ANAPHYLAXIS Verified 07/20/17 22:44 watermelon Allergy ANAPHYLAXIS Verified 07/20/17 22:44 almond milk Allergy SWELLING Uncoded 07/20/17 22:44 cantelope Allergy ANAPHYLAXIS Uncoded 07/20/17 22:44 Physical Exam - Constitutional Appears: No Acute Distress - Head Exam Head Exam: ATRAUMATIC, NORMAL INSPECTION, NORMOCEPHALIC - Eye Exam Eye Exam: EOMI, Normal appearance Pupil Exam: NORMAL ACCOMODATION, PERRL - ENT Exam ENT Exam: Mucous Membranes Moist, Normal Exam - Neck Exam Neck exam: Positive for: Full Rom, Normal Inspection. Negative for: Lymphadenopathy, Tenderness - Respiratory Exam Respiratory Exam: Clear to Auscultation Bilateral. absent: Rales, Rhonchi, Wheezes - Cardiovascular Exam Cardiovascular Exam: REGULAR RHYTHM, RRR, +S2. absent: Gallop, JVD - GI/Abdominal Exam Additional comments: Flat, Soft, +ve bowel sounds, Generalized tenderness, No rebound nor guarding. - Rectal Exam Rectal Exam: Deferred - Extremities Exam Extremities exam: Positive for: full ROM, normal inspection. Negative for: calf tenderness, pedal edema - Back Exam Back exam: CVA tenderness (L), CVA tenderness (R) - Neurological Exam Neurological exam: Alert, CN II-XII Intact, Oriented x3, Reflexes Normal - Psychiatric Exam Psychiatric exam: Normal Affect, Normal Mood - Skin Skin Exam: Dry, Intact, Normal Color, Warm Results - Vital Signs Recent Vital Signs: Last Vital Signs Temp 97.6 F 11/16/17 23:09 Pulse 66 11/16/17 23:09 Resp 18 11/16/17 23:09 BP 137/89 11/16/17 23:09 Pulse Ox 100 11/17/17 04:23 - Labs Result Diagrams: 11/17/17 00:30 11/17/17 00:30 Labs: Laboratory Results - last 24 hr 11/17/17 11/17/17 11/17/17 00:17 00:30 00:30 WBC 7.3 RBC 4.43 Hgb 12.3 Hct 37.6 MCV 84.9 MCH 27.9 MCHC 32.9 L RDW 14.3 Plt Count 246 MPV 8.6 Neut % (Auto) 52.5 Lymph % (Auto) 38.5 [place] % (Auto) 6.3 Eos % (Auto) 2.2 Baso % (Auto) 0.5 Neut # (Auto) 3.9 Lymph # (Auto) 2.8 [place] # (Auto) 0.5 Eos # (Auto) 0.2 Baso # (Auto) 0.0 Sodium 140 Potassium 4.0 Chloride 105 Carbon Dioxide 21 L Anion Gap 18 BUN 12 Creatinine 0.5 L Est GFR ( Amer) > 60 Est GFR (Non-Af Amer) > 60 Random Glucose 88 Calcium 9.4 Total Bilirubin 0.5 AST 23 ALT 31 Alkaline Phosphatase 69 Total Protein 8.2 Albumin 4.4 Globulin 3.8 Albumin/Globulin Ratio 1.2 Lipase 62 Urine Color Straw Urine Clarity Clear Urine pH 7.0 Ur Specific [place] 1.010 Urine Protein Negative Urine Glucose (UA) Neg Urine Ketones Negative Urine Blood Negative Urine Nitrate Negative Urine Bilirubin Negative Urine Urobilinogen 0.2-1.0 Ur Leukocyte Esterase Neg Urine RBC (Auto) 1 Urine Microscopic WBC 1 Ur Squamous Epith Cells < 1 Urine Bacteria Rare - Imaging and Cardiology CT scan - abdomen Status: Report reviewed by me Additional comment: EXAM: CT Abdomen and Pelvis With Intravenous Contrast CT - ABD PELVIS IV CONTRAST ONLY 2017-08-28 16:49 FINDINGS: Lung bases: Unremarkable. No mass. No consolidation. ABDOMEN: Liver: Unremarkable. No mass. Gallbladder and bile ducts: Unremarkable. No ductal dilation. Pancreas: Unremarkable. No mass. No ductal dilation. Spleen: Unremarkable. No splenomegaly. Adrenals: Unremarkable. No mass. Kidneys and ureters: Unremarkable. No solid mass. No hydronephrosis. Stomach and bowel: Large amount of stool in the colon. Correlation with patient' s clinical history of constipation is recommended. Diverticulosis.There are nonspecific fluid filled small bowel loops. These findings can represent ileus versus enteritis versus slow transit versus peristalsis. Appendix: Appendectomy. PELVIS: Bladder: Bladder distention. Correlation with patient's voiding status is recommended. Reproductive: There is heterogeneous appearance to the cervix. Correlation with clinical pelvic exam and/or Pap smear may be helpful if cervical fibroid or other mass etiology is clinically suspected. Endometrial stripe distention. Correlation with patient's menstrual cycle status is recommended. Right ovarian hypodense dominant follicle measuring 2.1 cm and the left ovarian dominant follicle measuring 1.8 cm. ABDOMEN and PELVIS: Intraperitoneal space: Small to moderate amount of free pelvic fluid. No free air. Bones/joints: No acute fracture. No dislocation. Soft tissues: Unremarkable. Vasculature: Unremarkable. No abdominal aortic aneurysm. Lymph nodes: Unremarkable. No enlarged lymph nodes. IMPRESSION: 1. Small to moderate amount of free pelvic fluid. 2. Bilateral ovarian dominant follicle.If clinically warranted, a pelvic ultrasound may be helpful for further assessment. 3. There is heterogeneous appearance to the cervix. Correlation with clinical pelvic exam and/or Pap smear may be helpful if cervical fibroid or other mass etiology is clinically suspected. Assessment & Plan - Assessment and Plan (Free Text) Assessment: #. Abdominal Pain #. Constipation #. Bilateral dominant ovarian follicles with small to moderate amount of free pelvic fluid #. Bladder Distension #. Stage 4 Endometriosis Plan: 22 years old female with hx of Stage 4 Endometriosis, Colitis, Appendectomy returns to the ED after being diagnosed and treated for UTI 4 days ago. She returns with worsening of the same Severe pain across the lower back, radiating to the left and right lateral and anterior abdomen and to the pelvic region. Associated with Nausea, vomiting once, chills, diaphoresis, headache, dizziness with increase of pain at the pelvic region on urination. #. Abdominal Pain in patient with CT abdomen showing signs of constipation with large amount of stool in colon. This could be the cause of the abdominal pain as there is no evidence for UTI. There is bilateral Ovarian Follicles with free pelvic fluid of unclear etiology. Ruptured ovarian cyst should be ruled out after the colon is cleared and the bladder has been decompressed if still distended. - Pain management with Morphine. - IV Fluids #. Constipation - Golitely. If patient cannot tolerate then give enemas #. Bilateral dominant ovarian follicles with small to moderate amount of free pelvic fluid - Surgery on consult Dr Juarez - Follow CBC #. Bladder Distension - Stat Bladder Scan. If patient has retention after urination, she will need a straight catherization, and urology consult #. Stage 4 Endometriosis - to follow up with Filtration Plant Operator on discharge #. Stress Ulcer prophylaxis with Pepcid #. DVT Prophylaxis with SCD #. Code Status: Full - Date & Time Date: 11/17/17 Time: 05:08
[2017-11-17] MEDS ORDERED: Morphine 4 MG/ML VIAL IVP PRN (05:11)
[2017-11-17] MEDS ORDERED: Peg-Electrolyte Oral Soln 4L (Golytely) PO STA (05:20)
--- NOTE | 2017-11-17 05:47 | CP.PCM.CON ---
History of Present Illness - History of Present Illness History of Present Illness: SURGERY CONSULT NOTE FOR DR. COLINDRES 22F presents with abdominal pain that has been on going for one week. She states the pain is diffused and radiates to her back. She was recently in the ER 4 days ago and was diagnosed with UTI with the same symptoms. She admits to multiple bouts of emesis this past week. Last emesis was two days ago. New UA today shows resolved UTI. She admits to having sweats at night. Denies any feelings of constipation, she has been having regular bowel movements. She has a history of endometriosis which she has had laparoscopies for with "burning of the endometriosis". She states she was told the endometriosis is stage 4. PMH: Endometriosis PSH: Diagnostic laparoscopy x2, cauterization of endometriosis. Social: denies tobacco, alcohol, illicit drugs Allergies: NKDA Past Patient History - Infectious Disease Hx of Infectious Diseases: None - Past Medical History & Family History Past Medical History?: Yes - Past Social History Smoking Status: Current Some Days Smoker - CARDIAC Hx Cardiac Disorders: No - PULMONARY Hx Asthma: Yes - NEUROLOGICAL Hx Neurological Disorder: No - HEENT Hx HEENT Problems: No - RENAL Hx Chronic Kidney Disease: No - ENDOCRINE/METABOLIC Hx Endocrine Disorders: No - HEMATOLOGICAL/ONCOLOGICAL Hx Blood Disorders: No - INTEGUMENTARY Hx Dermatological Problems: No - MUSCULOSKELETAL/RHEUMATOLOGICAL Hx Musculoskeletal Disorders: No Hx Falls: No - GASTROINTESTINAL Hx Gastrointestinal Disorders: Yes Hx Colitis: Yes - GENITOURINARY/GYNECOLOGICAL Hx Genitourinary Disorders: Yes (stage 4 endometriosis) - PSYCHIATRIC Hx Psychophysiologic Disorder: No Hx Substance Use: No - SURGICAL HISTORY Hx Appendectomy: Yes - ANESTHESIA Hx Anesthesia: Yes Hx Anesthesia Reactions: No Hx Malignant Hyperthermia: No Meds Allergies/Adverse Reactions: Allergies Allergy/AdvReac Type Severity Reaction Status Date / Time melon Allergy ANAPHYLAXIS Verified 07/20/17 22:44 watermelon Allergy ANAPHYLAXIS Verified 07/20/17 22:44 almond milk Allergy SWELLING Uncoded 07/20/17 22:44 cantelope Allergy ANAPHYLAXIS Uncoded 07/20/17 22:44 - Medications Medications: Current Medications Famotidine (Pepcid) 20 mg IVP DAILY [facility] Sodium Chloride (Sodium Chloride 0.9%) 1,000 mls @ 1,000 mls/hr IV .Q1H YAYA Last Admin: 11/17/17 00:26 Dose: 1,000 mls/hr Sodium Chloride (Sodium Chloride 0.9%) 1,000 mls @ 150 mls/hr IV .Q6H40M YAYA Stop: 11/18/17 05:12 Metoclopramide HCl (Reglan) 5 mg IVP Q6 PRN PRN Reason: Nausea/Vomiting Morphine Sulfate (Morphine) 4 mg IVP Q4 PRN PRN Reason: Pain, severe (8-10) Morphine Sulfate (Morphine) 2 mg IVP Q4 PRN PRN Reason: Pain, moderate (4-7) Polyethylene Glycol/Electrolytes (Golytely) 1,500 ml PO STAT STA Stop: 11/17/17 05:21 Physical Exam - Constitutional Appears: Well, Non-toxic, No Acute Distress Additional comments: uncomfortable - Head Exam Head Exam: ATRAUMATIC - Eye Exam Eye Exam: EOMI, PERRL - ENT Exam ENT Exam: Mucous Membranes Moist - Respiratory Exam Respiratory Exam: Clear to Auscultation Bilateral, NORMAL BREATHING PATTERN - Cardiovascular Exam Cardiovascular Exam: REGULAR RHYTHM, +S1, +S2 - GI/Abdominal Exam GI & Abdominal Exam: Soft, Tenderness (diffuse tenderness). absent: Distended, Firm, Guarding, Rebound, Rigid - Extremities Exam Extremities exam: Negative for: pedal edema, tenderness - Back Exam Back exam: CVA tenderness (L), CVA tenderness (R), paraspinal tenderness - Neurological Exam Neurological exam: Alert, Oriented x3 - Psychiatric Exam Psychiatric exam: Normal Affect, Normal Mood - Skin Skin Exam: Dry, Intact, Normal Color, Warm Results - Vital Signs Recent Vital Signs: Last Vital Signs Temp 97.6 F 11/16/17 23:09 Pulse 66 11/16/17 23:09 Resp 18 11/16/17 23:09 BP 137/89 11/16/17 23:09 Pulse Ox 100 11/17/17 04:23 - Labs Result Diagrams: 11/17/17 00:30 11/17/17 00:30 Labs: Laboratory Results - last 24 hr 11/17/17 11/17/17 11/17/17 00:17 00:30 00:30 WBC 7.3 RBC 4.43 Hgb 12.3 Hct 37.6 MCV 84.9 MCH 27.9 MCHC 32.9 L RDW 14.3 Plt Count 246 MPV 8.6 Neut % (Auto) 52.5 Lymph % (Auto) 38.5 [place] % (Auto) 6.3 Eos % (Auto) 2.2 Baso % (Auto) 0.5 Neut # (Auto) 3.9 Lymph # (Auto) 2.8 [place] # (Auto) 0.5 Eos # (Auto) 0.2 Baso # (Auto) 0.0 Sodium 140 Potassium 4.0 Chloride 105 Carbon Dioxide 21 L Anion Gap 18 BUN 12 Creatinine 0.5 L Est GFR ( Amer) > 60 Est GFR (Non-Af Amer) > 60 Random Glucose 88 Calcium 9.4 Total Bilirubin 0.5 AST 23 ALT 31 Alkaline Phosphatase 69 Total Protein 8.2 Albumin 4.4 Globulin 3.8 Albumin/Globulin Ratio 1.2 Lipase 62 Urine Color Straw Urine Clarity Clear Urine pH 7.0 Ur Specific [place] 1.010 Urine Protein Negative Urine Glucose (UA) Neg Urine Ketones Negative Urine Blood Negative Urine Nitrate Negative Urine Bilirubin Negative Urine Urobilinogen 0.2-1.0 Ur Leukocyte Esterase Neg Urine RBC (Auto) 1 Urine Microscopic WBC 1 Ur Squamous Epith Cells < 1 Urine Bacteria Rare Assessment & Plan - Assessment and Plan (Free Text) Assessment: 22F with abdominal pain and back pain of unknown etiology r/o UTI, r/o Tuan-ciaran scott Abd/pelvic US 11/12: unremarkable CT 11/17: small to moderate free fluid in pelvis Plan: NPO, IVF Pain control F/u pelvic ultrasound F/u STD work-up OBGYN consult No surgical intervention at this time Further recs discuss with Dr. Larry Spence, PGY2
[2017-11-17] MEDS: Morphine 4 MG/ML VIAL IVP PRN ×3 (10:31→18:22)
--- NOTE | 2017-11-17 11:40 | CT ---
EXAMINATION PERFORMED: CT ABDOMEN AND PELVIS. CLINICAL HISTORY: Abdominal pain LMP 10/25/2017 Relevant surgical history: Prior appendectomy COMPARISON EXAMINATIONS: 08/28/2017 TECHNIQUE: 2.5 mm axial acquisition and display. Coronal and sagittal reconstructions. Coronal and sagittal reconstructed images. Contrast: 90 cc Omnipaque 300 Dose report (mGy-cm): 363.[address] scans at this facility use one or more dose reduction techniques: Automated exposure control; mA/kv adjustment per patient size (including targeted exams where, for example, dose is matched to indication; for example head) or iterative reconstruction technique. FINDINGS: Lower thorax: No significant findings. Liver: Unremarkable. Gallbladder: Unremarkable Pancreas: Unremarkable Spleen: Unremarkable Kidneys: No evidence of mass, calculus disease, hydronephrosis. Stomach small bowel and colon: Constipation without fecal impaction or obstruction. Appendix: No abnormalities to suggest acute appendicitis. No right lower quadrant inflammatory processes identified. Reproductive: Enlarged, myomatous uterus. Multiple adnexal cysts with contrast-enhancing characteristics suggestive of recent rupture. Trace free fluid identified in the pelvis/cul de sac. Peritoneal cavity: No significant fluid, drainable collection, free air. Lymphadenopathy: None Osseous structures: No acute findings. Other: None. IMPRESSION: Enlarged, myomatous uterus. Adnexal cysts and trace free fluid in the cul-de-sac. Concordant results (preliminary interpretation) provided by [facility]. Procedure Completed: 02:15 Preliminary (vRad) Report: Dictated and Authenticated: 02:59 Final Interpretation: 11:39. November 17, 2017.
--- NOTE | 2017-11-17 13:52 | US ---
HISTORY: Abdominal pain with free fluid and suspect torsion. Duration of symptoms: 1 week Menstrual status: LMP 10/25/2017 COMPARISON: 11/13/2017 pelvic ultrasound. November 17, 2017. CT abdomen and pelvis. TECHNIQUE: Transabdominal only. Real-time technique with 2D, duplex and color Doppler FINDINGS: UTERUS: Measures 2.8 x 4 x 9.6 cm. Normal in size and appearance. No fibroid or other mass lesion seen. ENDOMETRIUM: Measures 10.9 mm in diameter. No ultrasound findings to suggest gestational sac, fluid, debris, mass or polyp or other pathologic process within the endometrium. CERVIX: No cervical abnormality identified. RIGHT OVARY: Measures 1.8 x 3 x 2.3 cm. No solid mass. Normal flow. Simple cyst 1.4 x 1.2 x 1.6 cm LEFT OVARY: Measures 1.5 x 2 x 3.9 cm. No solid mass. Normal flow. Simple cyst 1.7 x 2.2 x 1.9 cm FREE FLUID: No significant free fluid noted. OTHER FINDINGS: None. IMPRESSION: Confirmation of bilateral adnexal cysts. No evidence of adnexal torsion.
[2017-11-18] MEDS: Morphine 4 MG/ML VIAL IVP PRN ×2 (00:51→08:10)
[2017-11-18] MEDS: Sodium Chloride 0.9% 1,000 ML IV SCH ×4 (00:56→12:25)
--- NOTE | 2017-11-18 08:08 | CP.PCM.PN ---
Subjective - Date & Time of Evaluation Date of Evaluation: 11/18/17 Time of Evaluation: 07:30 - Subjective Subjective: General Surgery Progress Note- Dr. Juarez 22 y.o female with abdominal pain seen and evaluated at bedside in the AM. Patient is in NAD and AA0x3. Patient reports the same pain to the abdominal and lower back. Appears to be in mild discomfort during visitation. Patient mentions having increase pain in abdominal after emptying her bladder. Patient denies nausea, fever, shortness of breath, chest pains or chills. Objective - Vital Signs/Intake and Output Vital Signs (last 24 hours): Temp Pulse Resp BP Pulse Ox 97.8 F 62 18 91/55 L 98 11/18/17 01:00 11/18/17 01:00 11/18/17 01:00 11/18/17 01:00 11/18/17 01:00 - Medications Medications: Current Medications Famotidine (Pepcid) 20 mg IVP DAILY [facility] Sodium Chloride (Sodium Chloride 0.9%) 1,000 mls @ 1,000 mls/hr IV .Q1H [facility]A Last Admin: 11/17/17 00:26 Dose: 1,000 mls/hr Lactulose (Enulose) 20 gm PO BID PRN PRN Reason: Constipation Last Admin: 11/17/17 21:53 Dose: 20 gm Metoclopramide HCl (Reglan) 5 mg IVP Q6 PRN PRN Reason: Nausea/Vomiting Last Admin: 11/18/17 00:48 Dose: 5 mg Morphine Sulfate (Morphine) 4 mg IVP Q4 PRN PRN Reason: Pain, severe (8-10) Morphine Sulfate (Morphine) 2 mg IVP Q4 PRN PRN Reason: Pain, moderate (4-7) Last Admin: 11/18/17 00:51 Dose: 2 mg - Labs Labs: 11/17/17 00:30 11/17/17 00:30 - Constitutional Appears: Well, Non-toxic, No Acute Distress - Head Exam Head Exam: ATRAUMATIC - Eye Exam Eye Exam: Normal appearance - ENT Exam ENT Exam: Mucous Membranes Moist - Neck Exam Neck Exam: Normal Inspection - Respiratory Exam Respiratory Exam: NORMAL BREATHING PATTERN - Cardiovascular Exam Cardiovascular Exam: REGULAR RHYTHM - GI/Abdominal Exam GI & Abdominal Exam: Soft, Tenderness Additional comments: absent: Distended, Firm, Guarding, Rebound, Rigid - Neurological Exam Neurological Exam: Alert, Awake, Oriented x3 - Psychiatric Exam Psychiatric exam: Normal Affect, Normal Mood Assessment and Plan - Assessment and Plan (Free Text) Assessment: 22F with abdominal pain and back pain of unknown etiology r/o Lucina chavez Abd/pelvic US 11/12: unremarkable CT 11/17: small to moderate free fluid in pelvis no UTI Plan: C/w liquid diet, IVF Pain control Pelvic U/S- bilateral adnexal cysts, no evidence of torsion Abdomina/Pelvis CT- enlarged, myomatous uterus and adnexal cysts and trace free fluid in cul-de-sac F/u STD work-up OBGYN consult- recommendations appreciated No surgical intervention at this time by general surgery Please reconsult as needed Thank you for allowing us to take part in patient's care Further recs discuss with Dr. Juarez
--- NOTE | 2017-11-18 11:12 | CP.PCM.PN ---
Subjective - Date & Time of Evaluation Date of Evaluation: 11/18/17 Time of Evaluation: 10:57 - Subjective Subjective: pt continues to complain of pain last BM 2 days ago no other complaints hd stable nad Objective - Vital Signs/Intake and Output Vital Signs (last 24 hours): Temp Pulse Resp BP Pulse Ox 97.8 F 64 18 93/51 L 99 11/18/17 08:27 11/18/17 08:27 11/18/17 08:27 11/18/17 08:27 11/18/17 08:27 GEN: awake, alert, cooperative HEENT: NCAT, PERRL, EOMI HEART: RRR, S1, S2 no MRG LUNG: CTAB, no WRR ABD: soft, nontender, nondistended, BSX4, no masses EXT: warm, well perfused SKIN: warm, dry NEURO: awake, alert PSYCH: normal mood and affect - Medications Medications: Current Medications Famotidine (Pepcid) 20 mg IVP DAILY [facility] Last Admin: 11/18/17 08:17 Dose: 20 mg Sodium Chloride (Sodium Chloride 0.9%) 1,000 mls @ 1,000 mls/hr IV .Q1H YAYA Last Admin: 11/18/17 08:17 Dose: Not Given Lactulose (Enulose) 20 gm PO BID PRN PRN Reason: Constipation Last Admin: 11/17/17 21:53 Dose: 20 gm Metoclopramide HCl (Reglan) 5 mg IVP Q6 PRN PRN Reason: Nausea/Vomiting Last Admin: 11/18/17 08:09 Dose: 5 mg Morphine Sulfate (Morphine) 4 mg IVP Q4 PRN PRN Reason: Pain, severe (8-10) Last Admin: 11/18/17 09:28 Dose: 4 mg Morphine Sulfate (Morphine) 2 mg IVP Q4 PRN PRN Reason: Pain, moderate (4-7) Last Admin: 11/18/17 08:10 Dose: 2 mg - Labs Labs: 11/17/17 00:30 11/17/17 00:30 Assessment and Plan - Assessment and Plan (Free Text) Plan: 22 years old female with hx of Stage 4 Endometriosis, Colitis, Appendectomy returns to the ED after being diagnosed and treated for UTI 4 days ago. She returns with worsening of the same Severe pain across the lower back, radiating to the left and right lateral and anterior abdomen and to the pelvic region. Associated with Nausea, vomiting once, chills, diaphoresis, headache, dizziness with increase of pain at the pelvic region on urination. Abdominal Pain CT abdomen showing signs of constipation with large amount of stool in colon. There is bilateral Ovarian Follicles with free pelvic fluid of unclear etiology. Ruptured ovarian cyst should be ruled out after the colon is cleared and the bladder has been decompressed if still distended. - Pain management changed from morphine to toradol 2/2 constipation - IV Fluids Constipation - Golitely. If patient cannot tolerate then give enemas Bilateral dominant ovarian follicles with small to moderate amount of free pelvic fluid - Surgery on consult Dr Juarez - Follow CBC Stage 4 Endometriosis - OBGYN consult for pain - awaiting recommendations #. Code Status: Full
--- NOTE | 2017-11-18 18:52 | CP.PCM.CON ---
<Denton Villaseñor - Last Filed: 11/18/17 19:24> History of Present Illness - History of Present Illness History of Present Illness: OBGYN Consult note This is 22 years old female with PMH of Stage 4 Endometriosis, and Appendectomy admitted to the floor for abdominal pain. Patient was treated for UTI 4 days ago and discharged on Cipro. She returns with worsening of the same complaint which is Severe pain across the lower back, radiating to the left and right lateral and anterior abdomen and to the pelvic region. The pain is sharp, continuous, with no significant relief with her regular analgesics. The pain is associated with Nausea, vomiting once, chills, diaphoresis, headache, dizziness with increase of pain at the pelvic region on urination. patient has been having this symptoms on and off since very long time. Patient denies any chest pain, SOB, weakness or edema. patient admits decreased appetite recently and may have lost 4 to 5 LB in last few weeks. PMD: Dr. Cotton PMH: Stage 4 Endometriosis PSH: Appendectomy; Laparoscopies X2 Allg; NKDA Meds: Tramadol for pain OBGYN: Normal PAP smear, on control, sexually active with 1 partner SH: Denies smoking and alcohol use in last 1 year, Never used illicit drug FH: + for ovarian, colon and breast cancers Review of Systems - Review of Systems Review of Systems: As per HPI Past Patient History - Infectious Disease Hx of Infectious Diseases: None - CARDIAC Hx Cardiac Disorders: No - PULMONARY Hx Asthma: Yes - NEUROLOGICAL Hx Neurological Disorder: No - HEENT Hx HEENT Problems: No - RENAL Hx Chronic Kidney Disease: No - ENDOCRINE/METABOLIC Hx Endocrine Disorders: No - HEMATOLOGICAL/ONCOLOGICAL Hx Blood Disorders: No Hx Human Immunodeficiency Virus (HIV): No - INTEGUMENTARY Hx Dermatological Problems: No - MUSCULOSKELETAL/RHEUMATOLOGICAL Hx Musculoskeletal Disorders: No Hx Falls: No - GASTROINTESTINAL Hx Gastrointestinal Disorders: Yes Hx Colitis: Yes - GENITOURINARY/GYNECOLOGICAL Hx Genitourinary Disorders: Yes (stage 4 endometriosis) - PSYCHIATRIC Hx Psychophysiologic Disorder: No Hx Substance Use: No - SURGICAL HISTORY Hx Appendectomy: Yes Other/Comment: laparoscopies X2 - ANESTHESIA Hx Anesthesia: Yes Hx Anesthesia Reactions: No Hx Malignant Hyperthermia: No Meds Allergies/Adverse Reactions: Allergies Allergy/AdvReac Type Severity Reaction Status Date / Time melon Allergy ANAPHYLAXIS Verified 07/20/17 22:44 watermelon Allergy ANAPHYLAXIS Verified 07/20/17 22:44 almond milk Allergy SWELLING Uncoded 07/20/17 22:44 cantelope Allergy ANAPHYLAXIS Uncoded 07/20/17 22:44 - Medications Medications: Current Medications Famotidine (Pepcid) 20 mg IVP DAILY REPLACED BY [facility] Last Admin: 11/18/17 08:17 Dose: 20 mg Sodium Chloride (Sodium Chloride 0.9%) 1,000 mls @ 1,000 mls/hr IV .Q1H REPLACED BY [facility] Last Admin: 11/18/17 08:17 Dose: Not Given Ketorolac Tromethamine (Toradol) 15 mg IVP Q6 PRN PRN Reason: Pain, moderate (4-7) Ketorolac Tromethamine (Toradol) 30 mg IVP Q6 PRN PRN Reason: Pain, severe (8-10) Last Admin: 11/18/17 15:44 Dose: 30 mg Lactulose (Enulose) 20 gm PO BID PRN PRN Reason: Constipation Last Admin: 11/17/17 21:53 Dose: 20 gm Metoclopramide HCl (Reglan) 5 mg IVP Q6 PRN PRN Reason: Nausea/Vomiting Last Admin: 11/18/17 13:46 Dose: 5 mg Physical Exam - Constitutional Appears: No Acute Distress - Head Exam Head Exam: ATRAUMATIC, NORMAL INSPECTION, NORMOCEPHALIC - Eye Exam Eye Exam: EOMI, Normal appearance Pupil Exam: NORMAL ACCOMODATION - ENT Exam ENT Exam: Mucous Membranes Moist - Neck Exam Neck exam: Positive for: Normal Inspection - Respiratory Exam Respiratory Exam: Clear to Auscultation Bilateral, NORMAL BREATHING PATTERN - Cardiovascular Exam Cardiovascular Exam: REGULAR RHYTHM - GI/Abdominal Exam GI & Abdominal Exam: Normal Bowel Sounds, Soft, Tenderness (b/l lower and right upper Q ). absent: Distended, Organomegaly, Rebound, Rigid (Negative Sykes's sign ) - Extremities Exam Extremities exam: Positive for: normal inspection - Back Exam Back exam: NORMAL INSPECTION. absent: CVA tenderness (L), CVA tenderness (R) - Neurological Exam Neurological exam: Alert, CN II-XII Intact, Oriented x3 - Psychiatric Exam Psychiatric exam: Normal Affect - Skin Skin Exam: Dry, Intact, Normal Color, Warm Results - Vital Signs Recent Vital Signs: Last Vital Signs Temp 98 F 11/18/17 16:00 Pulse 83 11/18/17 16:00 Resp 18 11/18/17 16:00 BP 97/58 L 11/18/17 16:00 Pulse Ox 95 11/18/17 16:00 - Labs Result Diagrams: 11/17/17 00:30 11/17/17 00:30 Assessment & Plan - Assessment and Plan (Free Text) Assessment: A/P: 22 y/o F with PMH of stage 4 endometriosis, and recent UTI admitted to the hospital for evaluation and treatment of abdominal painAbd/pelvic US 11/12: unremarkable. CT 11/17: small to moderate free fluid in pelvis. Abdominal pain/ Constipation, No VEGETABLE SCULLION etiology - Pelvic U/S- bilateral adnexal cysts, no evidence of torsion - Abdomina/Pelvis CT- enlarged, myomatous uterus and adnexal cysts and trace free fluid in cul-de-sac, constipation - Continue pain management as per primary team - Continue IVF and full liquid diet - Out patient OBGYN follow up after discharge Stage 4 Endometriosis - Diagnosed 4 years ago at [facility] by Dr. Ramsey Treviño - Current OBGYN Dr. Pham Coburn - Continue pain management as per primary team, Pain is well controlled - No Interventions needed at this time - Follow up OBGYN as outpatient Case discussed with Dr. Valladares <Hi Valladares - Last Filed: 11/19/17 07:01> Meds - Medications Medications: Current Medications Famotidine (Pepcid) 20 mg IVP DAILY REPLACED BY [facility] Last Admin: 11/18/17 08:17 Dose: 20 mg Sodium Chloride (Sodium Chloride 0.9%) 1,000 mls @ 1,000 mls/hr IV .Q1H REPLACED BY [facility] Last Admin: 11/18/17 08:17 Dose: Not Given Ketorolac Tromethamine (Toradol) 15 mg IVP Q6 PRN PRN Reason: Pain, moderate (4-7) Ketorolac Tromethamine (Toradol) 30 mg IVP Q6 PRN PRN Reason: Pain, severe (8-10) Last Admin: 11/18/17 21:48 Dose: 30 mg Lactulose (Enulose) 20 gm PO BID PRN PRN Reason: Constipation Last Admin: 11/18/17 20:30 Dose: 20 gm Metoclopramide HCl (Reglan) 5 mg IVP Q6 PRN PRN Reason: Nausea/Vomiting Last Admin: 11/18/17 13:46 Dose: 5 mg Results - Vital Signs Recent Vital Signs: Last Vital Signs Temp 97.9 F 11/19/17 01:00 Pulse 65 11/19/17 01:00 Resp 20 11/19/17 01:00 BP 92/58 L 11/19/17 01:00 Pulse Ox 97 11/19/17 01:00 - Labs Result Diagrams: 11/17/17 00:30 11/17/17 00:30 Assessment & Plan - Assessment and Plan (Free Text) Plan: OB Hospitalist note: Pt was seen by me on rounds. Agree with PGY1 note. Follow up as outpatient. ESSIE - Date & Time Date: 11/19/17 Time: 07:00
[2017-11-18 23:58] VITALS: PULSE 65
[2017-11-19] MEDS ORDERED: Morphine 4 MG/ML VIAL IVP STA (00:52)
[2017-11-19 08:26] VITALS: BP 93/59; RESP 18; TEMP 97.2; O2SAT 99
[2017-11-19] MEDS ORDERED: Mineral Oil Enema 135 ml PR ONE (08:42)
[2017-11-19] MEDS: Sodium Chloride 0.9% 1,000 ML IV SCH (11:14)
[2017-11-19] MEDS ORDERED: Lidocaine 5% Patch TD SCH (12:30)
--- NOTE | 2017-11-19 15:10 | CP.PCM.DIS ---
Provider - Provider Date of Admission: 11/18/17 11:24 Attending physician: Gustavo Vergara Primary care physician: Owen Arroyo MD Consults: TURN LASTER: DR Valladares Surgery : DR Juarez Time Spent in preparation of Discharge (in minutes): 30 Diagnosis - Discharge Diagnosis (1) Abdominal pain Status: Chronic (2) Endometriosis Status: Chronic Hospital Course - Lab Results Lab Results: Micro Results 11/17/17 06:11 Urine,Clean Catch Urine Culture - Final No Growth (<1,000 CFU/ML) Most Recent Lab Values WBC 7.3 K/uL (4.8-10.8) 11/17/17 00:30 RBC 4.43 Mil/uL (3.80-5.20) 11/17/17 00:30 Hgb 12.3 g/dL (12.0-16.0) 11/17/17 00:30 Hct 37.6 % (34.0-47.0) 11/17/17 00:30 MCV 84.9 fl (81.0-99.0) 11/17/17 00:30 MCH 27.9 pg (27.0-31.0) 11/17/17 00:30 MCHC 32.9 g/dL (33.0-37.0) L 11/17/17 00:30 RDW 14.3 % (11.5-14.5) 11/17/17 00:30 Plt Count 246 K/uL (130-400) 11/17/17 00:30 MPV 8.6 fl (7.2-11.7) 11/17/17 00:30 Neut % (Auto) 52.5 % (50.0-75.0) 11/17/17 00:30 Lymph % (Auto) 38.5 % (20.0-40.0) 11/17/17 00:30 [place] % (Auto) 6.3 % (0.0-10.0) 11/17/17 00:30 Eos % (Auto) 2.2 % (0.0-4.0) 11/17/17 00:30 Baso % (Auto) 0.5 % (0.0-2.0) 11/17/17 00:30 Neut # (Auto) 3.9 K/uL (1.8-7.0) 11/17/17 00:30 Lymph # (Auto) 2.8 K/uL (1.0-4.3) 11/17/17 00:30 [place] # (Auto) 0.5 K/uL (0.0-0.8) 11/17/17 00:30 Eos # (Auto) 0.2 K/uL (0.0-0.7) 11/17/17 00:30 Baso # (Auto) 0.0 K/uL (0.0-0.2) 11/17/17 00:30 Sodium 140 mmol/l (132-148) 11/17/17 00:30 Potassium 4.0 MMOL/L (3.6-5.0) 11/17/17 00:30 Chloride 105 mmol/L (98-107) 11/17/17 00:30 Carbon Dioxide 21 mmol/L (22-30) L 11/17/17 00:30 Anion Gap 18 (10-20) 11/17/17 00:30 BUN 12 mg/dl (7-17) 11/17/17 00:30 Creatinine 0.5 mg/dl (0.7-1.2) L 11/17/17 00:30 Est GFR ( Amer) > 60 11/17/17 00:30 Est GFR (Non-Af Amer) > 60 11/17/17 00:30 Random Glucose 88 mg/dL (65-105) 11/17/17 00:30 Calcium 9.4 mg/dL (8.4-10.2) 11/17/17 00:30 Total Bilirubin 0.5 mg/dl (0.2-1.3) 11/17/17 00:30 AST 23 U/L (14-36) 11/17/17 00:30 ALT 31 U/L (9-52) 11/17/17 00:30 Alkaline Phosphatase 69 U/L (38-126) 11/17/17 00:30 Total Protein 8.2 G/DL (6.3-8.2) 11/17/17 00:30 Albumin 4.4 g/dL (3.5-5.0) 11/17/17 00:30 Globulin 3.8 gm/dL (2.2-3.9) 11/17/17 00:30 Albumin/Globulin Ratio 1.2 (1.0-2.1) 11/17/17 00:30 Lipase 62 U/L (23-300) 11/17/17 00:30 Urine Color Straw (YELLOW) 11/17/17 00:17 Urine Clarity Clear (Clear) 11/17/17 00:17 Urine pH 7.0 (5.0-8.0) 11/17/17 00:17 Ur Specific [place] 1.010 (1.003-1.030) 11/17/17 00:17 Urine Protein Negative mg/dL (NEGATIVE) 11/17/17 00:17 Urine Glucose (UA) Neg mg/dL (Normal) 11/17/17 00:17 Urine Ketones Negative mg/dL (NEGATIVE) 11/17/17 00:17 Urine Blood Negative (NEGATIVE) 11/17/17 00:17 Urine Nitrate Negative (NEGATIVE) 11/17/17 00:17 Urine Bilirubin Negative (NEGATIVE) 11/17/17 00:17 Urine Urobilinogen 0.2-1.0 mg/dL (0.2-1.0) 11/17/17 00:17 Ur Leukocyte Esterase Neg Zahra/uL (Negative) 11/17/17 00:17 Urine RBC (Auto) 1 /hpf (0-3) 11/17/17 00:17 Urine Microscopic WBC 1 /hpf (0-5) 11/17/17 00:17 Ur Squamous Epith Cells < 1 /hpf (0-5) 11/17/17 00:17 Urine Bacteria Rare (<OCC) 11/17/17 00:17 C.trachomatis RNA (TMA) Not detected (Not Detected) 11/17/17 07:48 N.gonorrhoeae RNA (TMA) Not detected (Not Detected) 11/17/17 07:48 - Hospital Course Hospital Course: 22 years old female with hx of Stage 4 Endometriosis, Colitis, Appendectomy, returned to the ED after being diagnosed and treated for UTI . She came back with worsening of the same symptoms- Severe pain across the lower back, radiating to the left and right lateral and anterior abdomen and to the pelvic region. Associated with Nausea, vomiting once, chills, diaphoresis, headache, dizziness with increase of pain at the pelvic region on urination. 1. Intractable Abdominal Pain Pt needs further work up as outpt Pt has multiple ED vistits for the same sxs CT abdomen showing signs of constipation with large amount of stool in colon. This could be the cause of the abdominal pain as there is no evidence for UTI. There is also bilateral Ovarian Follicles with free pelvic fluid of unclear etiology - Ruptured ovarian cyst is also a possibility Her Endometriosis may also be the etiology of pain Had long talk with pt to ff up with her PCP and TURN LASTER and coordinate care for further work up - Pain management with Morphine. - IV Fluids - Surgery - rec TURN LASTER eval -TURN LASTER consulted - rec outpt ff up - Chlam/GC : negative - Pt signed against medical advice - she didnt even want to wait for me to come up and speak with her or give rx for Pain and discharge instruction 2. Constipation - Lactulose and Fleet enema given 3. Bilateral dominant ovarian follicles with small to moderate amount of free pelvic fluid - TURN LASTER on consult 4. Endometriosis - to follow up with Behavioral Interventionist on discharge #. Stress Ulcer prophylaxis with Pepcid #. DVT Prophylaxis with SCD Discharge Exam - Head Exam Head Exam: ATRAUMATIC, NORMAL INSPECTION, NORMOCEPHALIC - Eye Exam Eye Exam: EOMI, Normal appearance, PERRL Pupil Exam: NORMAL ACCOMODATION - ENT Exam ENT Exam: Mucous Membranes Moist, Normal External Ear Exam - Neck Exam Neck exam: Full Rom - Respiratory Exam Respiratory Exam: Respiratory Distress, NORMAL BREATHING PATTERN - Cardiovascular Exam Cardiovascular Exam: REGULAR RHYTHM, +S1, +S2 - GI/Abdominal Exam GI & Abdominal Exam: Normal Bowel Sounds, Soft, Tenderness - Extremities Exam Extremities exam: full ROM, normal capillary refill, normal inspection, pedal pulses present - Back Exam Back exam: FULL ROM. absent: CVA tenderness (L), CVA tenderness (R) - Neurological Exam Neurological exam: Alert, CN II-XII Intact, Normal Gait, Oriented x3, Reflexes Normal - Psychiatric Exam Psychiatric exam: Normal Affect, Normal Mood - Skin Skin Exam: Dry, Normal Color, Warm Discharge Plan - Follow Up Plan Condition: STABLE Disposition: AGAINST MEDICAL ADVICE Instructions: Chronic Pain (DC), Acute Abdomen (Belly Pain), Adult (DC) Additional Instructions: ff up with PMD and TURN LASTER rajwinder Referrals: Owen Arroyo MD [Primary Care Provider] -
== END 2017-11-19 13:59 | disposition left against medical advice (07) | DRG 182 ==
LOC: H.ER 22:21 → H.ERHOLD 11-17 04:37 → H.MEDSURG1 11-17 10:42 → OBSVTOIN 11-18 11:24
PROVIDERS: ADMIT Internal Medicine; ATTEND Internal Medicine
DX: K59.00 Constipation, unspecified (principal); N39.0 Urinary tract infection, site not specified; N80.9 Endometriosis, unspecified; J45.20 Mild intermittent asthma, uncomplicated; Z90.49 Acquired absence of other specified parts of digestive tract; F17.210 Nicotine dependence, cigarettes, uncomplicated

== ENCOUNTER 2018-07-01 14:56 | Emergency (ER) | payer MEDICAID ==
[2018-07-01 14:57] VITALS: BMI 22.4
[2018-07-01 15:11] VITALS: O2SAT 99
--- NOTE | 2018-07-01 15:24 | ED PDOC ---
HPI: Abdomen Time Seen by Provider: 07/01/18 15:22 Chief Complaint (Nursing): Abdominal Pain Additional Complaint(s): 23 year old female with past medical history of fibromyalgia, asthma, and attila endectomy presents to the emergency department complaining right sided abdominal pain and bilateral lower back pain x 1 week. Associated nausea. Last bowel movement yesterday, tolerating PO. Patient currently on gabapentin for her Fibromyalgia. States this pain is similar to her prior episodes of pain. Patient seen her multiple times for similar complaints. Has established followup with pain management and rheumatology. LMP 05/29/18. Denies fevers, chills, vomiting, urinary symptoms, diarrhea, constipation, incontinence, saddle anesthesia, weakness, numbness, paresthesias, chest pain, shortness of breath, cough, vaginal discharge/odor/bleeding, pelvic pain. Past Medical History Reviewed: Historical Data, Nursing Documentation, Vital Signs Vital Signs: Last Vital Signs Temp 98.3 F 07/01/18 15:09 Pulse 76 07/01/18 15:09 Resp 16 07/01/18 15:09 BP 99/64 L 07/01/18 15:09 Pulse Ox 99 07/01/18 15:09 - Medical History PMH: Asthma Denies: HIV, Chronic Kidney Disease - Surgical History Surgical History: Appendectomy - Family History Family History: States: Unknown Family Hx - Immunization History Hx Tetanus Toxoid Vaccination: No Hx Influenza Vaccination: No Hx Pneumococcal Vaccination: No - Home Medications Home Medications: Ambulatory Orders Medication Instructions Recorded Ondansetron [Zofran Tab] 4 mg PO Q6H PRN #10 tab 03/10/17 Ciprofloxacin HCl [Cipro] 500 mg PO BID #14 tablet 11/13/17 Ranitidine HCl [Zantac 75] 75 mg PO BID #10 tablet 11/13/17 Simethicone [Gas-X] 125 mg PO QID PRN #12 ctb 11/13/17 Famotidine [Pepcid] 20 mg PO BID PRN #30 tab 07/01/18 - Allergies Allergies/Adverse Reactions: Allergies Allergy/AdvReac Type Severity Reaction Status Date / Time melon Allergy ANAPHYLAXIS Verified 07/20/17 22:44 watermelon Allergy ANAPHYLAXIS Verified 07/20/17 22:44 almond milk Allergy SWELLING Uncoded 07/20/17 22:44 cantelope Allergy ANAPHYLAXIS Uncoded 07/20/17 22:44 Review of Systems ROS Statement: Except As Marked, All Systems Reviewed And Found Negative Constitutional: Negative for: Fever, Chills ENT: Negative for: Nose Congestion, Throat Pain Cardiovascular: Negative for: Chest Pain, Palpitations Respiratory: Negative for: Cough, Shortness of Breath Gastrointestinal: Positive for: Nausea, Abdominal Pain. Negative for: Vomiting, Diarrhea, Constipation, Melena, Hematochezia Genitourinary Female: Negative for: Dysuria, Frequency, Incontinence, Vaginal Discharge, Vaginal Bleeding, Pelvic Pain, Rash Musculoskeletal: Positive for: Back Pain. Negative for: Neck Pain, Shoulder Pain, Arm Pain, Leg Pain Skin: Negative for: Rash, Bruising Neurological: Negative for: Weakness, Numbness, Confusion, Headache, Dizziness Physical Exam - Reviewed Nursing Documentation Reviewed: Yes Vital Signs Reviewed: Yes - Physical Exam Appears: Positive for: Well, Non-toxic, No Acute Distress Head Exam: Positive for: ATRAUMATIC, NORMAL INSPECTION, NORMOCEPHALIC Skin: Positive for: Normal Color, Warm, DRY Eye Exam: Positive for: EOMI, Normal appearance, PERRL ENT: Positive for: Normal ENT Inspection Neck: Positive for: Normal, Painless ROM Cardiovascular/Chest: Positive for: Regular Rate, Rhythm Respiratory: Positive for: CNT, Normal Breath Sounds Gastrointestinal/Abdominal: Positive for: Normal Exam, Bowel Sounds (normoactive), Soft, Tenderness (RLQ, RUQ) Back: Positive for: Normal Inspection. Negative for: L CVA Tenderness, R CVA Tenderness, Vertebral Tenderness, Decreased ROM, Muscle Spasm Extremity: Positive for: Normal ROM, Capillary Refill (<2s). Negative for: Tenderness, Deformity, Swelling Lymphatic: Positive for: Normal Exam. Negative for: Adenopathy Neurologic/Psych: Positive for: Alert, information security consultant II-XII (intact), Oriented, Gait (steady). Negative for: Motor/Sensory Deficits - Laboratory Results Result Diagrams: 07/01/18 15:58 07/01/18 15:58 - ECG O2 Sat by Pulse Oximetry: 99 Medical Decision Making Medical Decision Making: Initial Plan: * Labs * UA, Ucx * Gallbladder US * TV US * POC preg * Toradol * IVF * Zofran Patient is hypotensive at baseline, per patient and prior visits to the ED. CBC: wnl CMP: wnl UA: wnl POC preg: negative Gallbladder US: FINDINGS: LIVER: Measures 14.7 cm in length. There is diffuse increased echogenicity of the liver parenchyma. No mass. No intrahepatic bile duct dilatation. GALLBLADDER: The gallbladder is contracted which may be related to nonfasting status. No gallstones or pericholecystic fluid. The sonographic Sykes's sign is negative. COMMON BILE DUCT: Measures 2.2 mm. No stones. No dilatation. PANCREAS: Unremarkable as visualized. No mass. No ductal dilatation. RIGHT KIDNEY: Measures 10.7 cm in length. Normal echogenicity. No calculus, mass, or hydronephrosis. AORTA: No aneurysmal dilatation. IVC: Unremarkable. OTHER FINDINGS: None . IMPRESSION: The gallbladder is contracted which may be related to nonfasting status. Diffuse increased echogenicity in the liver may reflect hepatic steatosis however parenchymal infectious/ inflammatory etiologies cannot be entirely excluded. Clinical and laboratory correlation is advised. Pelvic Ultrasound: Impression: Unremarkable pelvic ultrasound 17:56 Pt continues to complain of RUQ pain. Will give 4mg IV Morphine 18:30 Pt seen and examined by Dr. Daniel, who recommends no further imaging and discharge home for followup with pain management. States she is familiar with the patient and her typical pain presentation. Discussed with patient and parents the Pros and Cons of further evaluation. Pt has had multiple CT scans in the past. With negative workup thus far, stable vitals, similarity to prior episodes, history of appendectomy, and currently decreased pain, shared decision making with pt and parents resulted in decision to discharge home with observation for any worsening signs/symptoms and followup outpatient with pain management. Pt tolerated PO without difficulty, states she is hungry and would like more. Pt reports resolution of pain and nausea. Plan of care discussed with patient and parents, and strict instructions given regarding prescriptions, importance o f follow up, and signs to return to Emergency Department, to include worsening abdominal/back pain, fevers, vomiting, or any other new/worsening symptoms. Patient verbalizes understanding of discussion. Patient A&Ox3, ambulating with steady gait, stable for discharge home. Disposition - Clinical Impression Clinical Impression: Abdominal pain - Disposition Referrals: [facility] [Outside] Moise Levine MD [Staff Provider] - Disposition: Routine/Home Disposition Time: 19:00 Condition: STABLE Additional Instructions: Increase fluids Ibuprofen/tylenol for pain Take home medication as prescribed Followup with pain management within 2 days Followup with GI within 2 days Followup with primary doctor within 2 days Return to ER for new/worsening symptoms Prescriptions: Famotidine [Pepcid] 20 mg PO BID PRN #30 tab PRN Reason: reflux Instructions: Acute Abdomen (Belly Pain), Adult (DC) Forms: [employer] [facility] (Romanian), [facility] ED School/Work Excuse
[2018-07-01] MEDS ORDERED: Sodium Chloride 0.9% 1,000 ML IV SCH (16:00)
[2018-07-01 16:08] LABS: BASO % 0.7 % (0.0-2.0); EOS # 0.2 K/uL (0.0-0.7); EOS % 3.1 % (0.0-4.0); HEMOGLOBIN 12.5 g/dL (12.0-16.0); LYMPH # 2.2 K/uL (1.0-4.3); LYMPH % 37.8 % (20.0-40.0); MEAN CELL VOLUME 86.6 fl (81.0-99.0); MEAN CORPUSCULAR HEMOGLOBIN 28.6 pg (27.0-31.0); MEAN PLATELET VOLUME 8.3 fl (7.2-11.7); MONO # 0.4 K/uL (0.0-0.8); MONO % 7.6 % (0.0-10.0); NEUT # 2.9 K/uL (1.8-7.0); NEUT % 50.8 % (50.0-75.0); NRBC % 0.1 % (0.0-0.0); RBC 4.38 Mil/uL (3.80-5.20); RED CELL DISTRIBUTION WIDTH 14.4 % (11.5-14.5); WHITE BLOOD COUNT 5.7 K/uL (4.8-10.8)
[2018-07-01 16:16] LABS: ALB/GLOB RATIO 1.3 (1.0-2.1); ALBUMIN 4.5 g/dL (3.5-5.0); ALT/SGPT 21 U/L (9-52); AST/SGOT 36 U/L (14-36); BLOOD UREA NITROGEN 14 mg/dl (7-17); CALCIUM 9.3 mg/dL (8.4-10.2); GFR NON-AFRICAN AMERICAN > 60; LIPASE 55 U/L (23-300)
[2018-07-01 16:18] LABS: SQUAMOUS EPITHIAL 1 /hpf (0-5); URINE BILIRUBIN NEGATIVE (NEGATIVE); URINE BLOOD NEGATIVE (NEGATIVE); URINE CLARITY SLIGHTY-CLOUDY (Clear); URINE COLOR YELLOW (YELLOW); URINE GLUCOSE (UA) NEG (Normal); URINE LEUKOCYTE ESTERASE NEG Leu/uL (Negative); URINE PROTEIN NEGATIVE (NEGATIVE); URINE UROBILINOGEN 0.2-1.0 mg/dL (0.2-1.0)
--- NOTE | 2018-07-01 17:46 | US ---
Date of service: 07/01/2018 HISTORY: RUQ pain COMPARISON: None. TECHNIQUE: Grayscale imaging was performed. FINDINGS: LIVER: Measures 14.7 cm in length. There is diffuse increased echogenicity of the liver parenchyma. No mass. No intrahepatic bile duct dilatation. GALLBLADDER: The gallbladder is contracted which may be related to nonfasting status. No gallstones or pericholecystic fluid. The sonographic Sykes's sign is negative. COMMON BILE DUCT: Measures 2.2 mm. No stones. No dilatation. PANCREAS: Unremarkable as visualized. No mass. No ductal dilatation. RIGHT KIDNEY: Measures 10.7 cm in length. Normal echogenicity. No calculus, mass, or hydronephrosis. AORTA: No aneurysmal dilatation. IVC: Unremarkable. OTHER FINDINGS: None . IMPRESSION: The gallbladder is contracted which may be related to nonfasting status. Diffuse increased echogenicity in the liver may reflect hepatic steatosis however parenchymal infectious/ inflammatory etiologies cannot be entirely excluded. Clinical and laboratory correlation is advised.
--- NOTE | 2018-07-01 18:05 | US ---
Date of service: 07/01/2018 HISTORY: vaginal and RLQ pain COMPARISON: None available. TECHNIQUE: Transvaginal pelvic ultrasound was performed. FINDINGS: UTERUS: Measures 7.1 x 2.1 x 3.0 cm. Anteverted, normal in size and appearance. No fibroid or other mass lesion seen. ENDOMETRIUM: Measures 8.0 mm in diameter. Unremarkable. CERVIX: There is a small nabothian cyst in the cervix. RIGHT OVARY: Measures 2.5 x 2.0 x 1.8 cm. No solid mass. Normal flow. LEFT OVARY: Measures 2.7 x 2.1 x 2.2 cm. No solid mass. Normal flow. There is a 1.6 x 1.5 x 1.5 cm cyst in the ovary. FREE FLUID: No significant free fluid noted. OTHER FINDINGS: None. IMPRESSION: Unremarkable pelvic ultrasound.
[2018-07-01 19:57] VITALS: PULSE 63; RESP 18; TEMP 97.8
[2018-07-01 20:00] VITALS: BP 98/63
== END 2018-07-01 20:00 | disposition home or self-care (01) ==
LOC: H.ER 14:56 → SUPCPDRO 14:56 → H.ER 20:00
DX: R10.11 Right upper quadrant pain (principal)
CPT/HCPCS: 76705; 76830; 80053; 81003; 81025; 83690; 85025; 87086; 96374; 96375; 99284; C9113; J1885; J2270; J2405; J7030